=== PATIENT | female | born 2000 | race Two or more races ===

== ENCOUNTER 2020-05-07 07:57 | Emergency (ER) | payer OTHER, SELFPAY ==
[2020-05-07 08:46] VITALS: BP 139/93; PULSE 89; RESP 16; O2SAT 98; BMI 37.9
--- NOTE | 2020-05-07 08:53 | ED_ITS ---
HPI - Chest Pain General Chief Complaint: Chest Pain Stated Complaint: chest pain Time Seen by Provider: 05/07/20 08:34 Source: patient Mode of arrival: ambulatory Limitations: no limitations History of Present Illness MD complaint: chest pain Onset (ago): day(s) (3) Timing of current episode: episodic Prior episodes: No Onset: during rest and during exertion Pain location: left chest Pain radiation: none Severity: moderate Quality: sharp Relieving factors: nothing Exacerbating factors: inspiration Context: recent illness (dx with COVID 1 week ago after loss of taste) Treatment prior to arrival: none Related Data Allergies Allergy/AdvReac Type Severity Reaction Status Date / Time No Known Allergies Allergy Verified 05/07/20 08:51 Review of Systems Review of Systems: Constitutional : No Weight loss, No Fever, No Chills ENT/Mouth : No sore throat, No Rhinorrhea Eyes: No Eye Pain, No Swelling Cardiovascular : pos Chest Pain, no SOB, no Dyspnea on Exertion, No Orthopnea, No Edema, No Palpitations Respiratory : No Cough, No Sputum Gastrointestinal : pos Nausea, No Vomiting, No Diarrhea, No abdominal Pain, No Hematochezia, No Melena Genitourinary : No Dysuria, No Urinary Frequency Musculoskeletal : No joint pain, No Myalgias, No Joint Swelling Skin : No Skin Lesions, No rash Neuro : No Weakness, No Numbness, No Dizziness, No Headache Psych : No Anxiety/Panic, No Depression Heme/Lymph: No Bruising, No Lymphadenopathy Endocrine : No Polyuria, No Polydipsia All other systems reviewed and are negative PMFSH Past Medical History Attestation statement: The following information was validated with the patient. Medical History COVID-19 Social History Social History (Updated 05/07/20 @ 09:04 by Elisabeth Leung DO) Alcohol intake: never Smoking Status: Never smoker Use of substances other than those prescribed or required for medical reasons: No Advance Directives: No Advance Directives Information Provided: No Physical Exam Vital Signs: Vital Signs: Last Vital Signs Pulse 89 05/07/20 08:46 Resp 16 05/07/20 08:46 BP 139/93 H 05/07/20 08:46 Pulse Ox 98 05/07/20 08:46 Body Mass Index 37.9 Appearance: Alert. Oriented X3. No acute distress. Eyes: Pupils equal, round and reactive to light. ENT: Pharynx normal. Neck: Normal inspection. Neck supple. CVS: Normal heart rate and rhythm. Pulses normal. Respiratory: No respiratory distress. Breath sounds normal. Abdomen: Soft and nontender. Skin: Skin warm and dry. Normal skin color. Normal skin turgor. Extremities: No lower extremity edema. No calf ttp Neuro: Oriented X 3. No motor deficit. No sensory deficit. Course Course Course Narrative: negative CXR, neg ddimer, neg trop - stable for DC MDM - Chest Pain MDM Narrative Medical decision making narrative: 19 yo female not on OCPs dx with COVID 1 week ago here with L sided pleuritic chest pain no tachycardia/hypoxia but given COVID dx will need labs, EKG, CXR, troponin and ddimer for possible PE, dispo per results and findings. Lab Data Result diagrams: 05/07/20 09:09 05/07/20 09:09 Labs: Lab Results 05/07/20 05/07/20 05/07/20 Range/Units 09:09 09:09 09:09 WBC 12.7 H (4.8-10.8) X10*3/uL RBC 4.60 (4.20-5.50) X10*6/uL Hgb 13.6 (12.0-16.0) g/dl Hct 42.1 (37-47) % MCV 91.5 (80-98) fL MCH 29.6 (27.0-33.0) pg MCHC 32.3 (31.0-35.0) g/dl RDW 13.1 (11.0-16.0) % Plt Count 278 (160-400) X10*3/uL MPV 9.7 (9.4-12.3) fL Immature Gran % (Auto) 0.5 H (0.0-0.4) % Neut % (Auto) 81.1 H (45-73) % Lymph % (Auto) 13.4 L (20-40) % [place] % (Auto) 4.7 (2-11) % Eos % (Auto) 0.1 (0-4) % Baso % (Auto) 0.2 (0-2) % Lymph # (Auto) 1.7 (1.2-4.9) X10*3/uL [place] # (Auto) 0.6 (0.1-1.2) X10*3/uL Eos # (Auto) 0.0 (0.0-0.4) X10*3/uL Baso # (Auto) 0.0 (0.0-0.2) X10*3/uL Abs Immat Gran (auto) 0.06 H (0.00-0.03) X10*3/uL Absolute Neuts (auto) 10.3 H (2.0-8.3) X10*3/uL Absolute Nucleated RBC 0.000 (0.0-0.012) X10*3/uL Nucleated RBC % (auto) 0.0 (0.0-0.2) /100WBC D-Dimer < 200 NG/ML Sodium 140 (135-145) mmol/L Potassium 4.4 (3.3-5.1) mmol/l Chloride 104 (96-108) mmol/L Carbon Dioxide 26 (22-29) mmol/L Anion Gap 14 (12-20) BUN 10 (9-16) mg/dL Creatinine 0.75 (0.5-1.4) mg/dL Estim Creat Clear Calc 148.9 Estimated GFR > 60 Random Glucose 111 (60-115) mg/dL Calcium 9.6 (8.4-10.2) mg/dL Magnesium 2.2 (1.6-2.6) mg/dL Total Bilirubin 0.4 (0.0-1.0) mg/dL Direct Bilirubin 0.2 (0.0-0.5) mg/dL AST 20 (5-31) U/L ALT 25 (0-31) U/L Alkaline Phosphatase 111 (39-117) U/L Troponin I High Sens (<3.5-17.0) ng/L Total Protein 8.3 H (6.5-8.0) g/dL Albumin 4.9 (3.5-5.0) g/dL Urine Test (NEGATIVE) 05/07/20 05/07/20 Range/Units 09:09 10:02 WBC (4.8-10.8) X10*3/uL RBC (4.20-5.50) X10*6/uL Hgb (12.0-16.0) g/dl Hct (37-47) % MCV (80-98) fL MCH (27.0-33.0) pg MCHC (31.0-35.0) g/dl RDW (11.0-16.0) % Plt Count (160-400) X10*3/uL MPV (9.4-12.3) fL Immature Gran % (Auto) (0.0-0.4) % Neut % (Auto) (45-73) % Lymph % (Auto) (20-40) % [place] % (Auto) (2-11) % Eos % (Auto) (0-4) % Baso % (Auto) (0-2) % Lymph # (Auto) (1.2-4.9) X10*3/uL [place] # (Auto) (0.1-1.2) X10*3/uL Eos # (Auto) (0.0-0.4) X10*3/uL Baso # (Auto) (0.0-0.2) X10*3/uL Abs Immat Gran (auto) (0.00-0.03) X10*3/uL Absolute Neuts (auto) (2.0-8.3) X10*3/uL Absolute Nucleated RBC (0.0-0.012) X10*3/uL Nucleated RBC % (auto) (0.0-0.2) /100WBC D-Dimer NG/ML Sodium (135-145) mmol/L Potassium (3.3-5.1) mmol/l Chloride (96-108) mmol/L Carbon Dioxide (22-29) mmol/L Anion Gap (12-20) BUN (9-16) mg/dL Creatinine (0.5-1.4) mg/dL Estim Creat Clear Calc Estimated GFR Random Glucose (60-115) mg/dL Calcium (8.4-10.2) mg/dL Magnesium (1.6-2.6) mg/dL Total Bilirubin (0.0-1.0) mg/dL Direct Bilirubin (0.0-0.5) mg/dL AST (5-31) U/L ALT (0-31) U/L Alkaline Phosphatase (39-117) U/L Troponin I High Sens < 3.5 (<3.5-17.0) ng/L Total Protein (6.5-8.0) g/dL Albumin (3.5-5.0) g/dL Urine Test NEGATIVE (NEGATIVE) ECG Data ECG #1: Attestation: I personally reviewed and interpreted this ECG as follows: ECG interpretation date: 05/07/20 ECG interpretation time: 10:47 Interpretation: Rate: 75 Rhythm: NSR [place]: normal Normal P waves. Normal PINA. Normal QRS complex. ST T wave : normal no KENTRELL qTC: normal prior studies: no acute ischemia The study has been interpreted contemporaneously by me. . Discharge Plan Discharge Clinical Impression: Atypical chest pain Patient Disposition: Home, Self-Care Instructions: Chest Pain (ED) Additional Instructions: return to ED for any worsening symptoms or concerns Referrals: Desiree Xavier PA [Primary Care Provider] - 3 days (if not better) Stand Alone Forms: Work/School Release
--- NOTE | 2020-05-07 08:53 | XR_ITS ---
EXAMINATION: XR CHEST CLINICAL INFORMATION: Chest pain. COMPARISON: None TECHNIQUE: Frontal view of the chest was obtained. FINDINGS: No significant abnormality is noted involving the heart, lungs, mediastinum, bony thorax or soft tissues. XR/XR chest 1V IMPRESSION: Unremarkable chest examination.
--- NOTE | 2020-05-07 08:53 | ECG_ITS ---
Test Reason : CP Blood Pressure : / mmHG Vent. Rate : 075 BPM Atrial Rate : 075 BPM P-R Int : 108 ms QRS Dur : 088 ms QT Int : 390 ms P-R-T Axes : 029 039 012 degrees QTc Int : 435 ms Sinus rhythm with short ID Otherwise normal EKG No previous ECGs available Referred By: Elisabeth Leung Electronically Signed By:MATT VIVEROS
[2020-05-07 09:14] LABS: MANUAL DIFF FLAG NO
[2020-05-07 09:20] LABS: Basophils Percent Auto 0.2 % (0-2); Eosinophils Percent Auto 0.1 % (0-4); Hematocrit 42.1 % (37-47); Hemoglobin 13.6 g/dl (12.0-16.0); Imm Gran Abs Auto 0.06 X10*3/uL (0.00-0.03); Imm Gran Pct Auto 0.5 % (0.0-0.4); Lymphocytes Absolute Auto 1.7 X10*3/uL (1.2-4.9); Lymphocytes Percent Auto 13.4 % (20-40); Mean Corpuscular HGB Conc 32.3 g/dl (31.0-35.0); Mean Corpuscular Hemoglobin 29.6 pg (27.0-33.0); Mean Corpuscular Volume 91.5 fL (80-98); Mean Platelet Volume 9.7 fL (9.4-12.3); Monocytes Absolute Auto 0.6 X10*3/uL (0.1-1.2); Monocytes Percent Auto 4.7 % (2-11); Neutrophils Absolute Auto 10.3 X10*3/uL (2.0-8.3); Neutrophils Percent Auto 81.1 % (45-73); Platelet Count 278 X10*3/uL (160-400); Red Cell Distribution Width 13.1 % (11.0-16.0); White Blood Count 12.7 X10*3/uL (4.8-10.8)
[2020-05-07 09:31] LABS: D Dimer < 200 NG/ML
[2020-05-07 09:36] LABS: Alanine Aminotransferase 25 U/L (0-31); Albumin Level 4.9 g/dL (3.5-5.0); Alkaline Phosphatase 111 U/L (39-117); Anion Gap 14 (12-20); Aspartate Amino Transferase 20 U/L (5-31); Bilirubin Direct 0.2 mg/dL (0.0-0.5); Bilirubin Total 0.4 mg/dL (0.0-1.0); Blood Urea Nitrogen 10 mg/dL (9-16); Calcium 9.6 mg/dL (8.4-10.2); Carbon Dioxide 26 mmol/L (22-29); Chloride 104 mmol/L (96-108); Creatinine Clr Calc Pharmacy 148.9; Estimated Glomerular Filt Rate > 60; Glucose Random 111 mg/dL (60-115); Magnesium 2.2 mg/dL (1.6-2.6); Potassium 4.4 mmol/l (3.3-5.1); Sodium 140 mmol/L (135-145); Total Protein 8.3 g/dL (6.5-8.0)
[2020-05-07 09:40] LABS: Troponin-I High Sensitivity < 3.5 ng/L (<3.5-17.0)
--- NOTE | 2020-05-07 10:04 | PC.NURSE ---
iv established, blood labs obtained and sent, ekg completed. pt ambulated to and from bathroom w steady gait for ua spec. awaiting cxr.
[2020-05-07 10:54] LABS: UPreg QC Valid YES; Urine Pregnancy NEGATIVE (NEGATIVE)
== END 2020-05-07 11:29 | disposition home or self-care (01) ==
PROVIDERS: Emergency Provider Emergency Medicine
DX: R07.89 Other chest pain (principal); Z86.16 Personal history of COVID-19
CPT/HCPCS: 36415; 71045; 80048; 80076; 81025; 83735; 84484; 85025; 85379; 93005; 99283; 99284

== ENCOUNTER 2020-05-13 19:10 | Emergency (ER) | payer OTHER, SELFPAY ==
--- NOTE | 2020-05-13 | ECG_ITS ---
Test Reason : CP Blood Pressure : / mmHG Vent. Rate : 078 BPM Atrial Rate : 078 BPM P-R Int : 106 ms QRS Dur : 088 ms QT Int : 368 ms P-R-T Axes : 041 041 009 degrees QTc Int : 419 ms Sinus rhythm with short ID Nonspecific T wave abnormality Abnormal ECG When compared with ECG of 07-MAY-2020 09:29, No significant change was found Referred By: Generic ED Physician Electronically Signed By:Angel Barragan
[2020-05-13 19:22] VITALS: BP 141/91; PULSE 83; RESP 16; TEMP 36.8; O2SAT 98; BMI 36.8
--- NOTE | 2020-05-13 20:45 | XR_ITS ---
EXAMINATION: XR CHEST CLINICAL INFORMATION: Chest pain. COMPARISON: Chest 05/07/2020 TECHNIQUE: Frontal view of the chest was obtained. FINDINGS: No significant abnormality is noted involving the heart, lungs, mediastinum, bony thorax or soft tissues. XR/XR chest 1V IMPRESSION: Unremarkable chest examination.
--- NOTE | 2020-05-13 21:07 | ED.CHESTPAIN ---
HPI - Chest Pain General Chief Complaint: Chest Pain Stated Complaint: chest pain Time Seen by Provider: 05/13/20 21:07 Source: patient and old records reviewed Mode of arrival: ambulatory Limitations: no limitations History of Present Illness HPI narrative: 19 yo female dx with COVID 05/01/20 - seen here on 05/07 for chest pain with negative EKG, troponin ddimer, she is not on OCPs, still have CP that is more CWP today but noted her L arm felt funny and the pain went down it complaint: chest heaviness Pertinent past history: other (COVID) Onset (ago): day(s) (7) Timing of current episode: constant Onset: during rest Pain location: substernal and left chest Pain radiation: left arm Severity: similar to previous episodes Quality: aching and heaviness Relieving factors: nothing Exacerbating factors: palpation and movement Context: recent illness (COVID) Treatment prior to arrival: none Related Data Previous Rx's Medication Instructions Recorded cyclobenzaprine 10 mg PO TID PRN #14 tab 05/13/20 prednisone 40 mg PO DAILY 5 Days #10 tab 05/13/20 Allergies Allergy/AdvReac Type Severity Reaction Status Date / Time No Known Allergies Allergy Verified 05/07/20 08:51 Review of Systems Review of Systems: Constitutional : No Weight loss, No Fever, No Chills ENT/Mouth : No sore throat, No Rhinorrhea Eyes: No Eye Pain, No Swelling Cardiovascular : pos Chest Pain, no SOB, no Dyspnea on Exertion, No Orthopnea, No Edema, No Palpitations Respiratory : No Cough, No Sputum Gastrointestinal : no Nausea, No Vomiting, No Diarrhea, No abdominal Pain, No Hematochezia, No Melena Genitourinary : No Dysuria, No Urinary Frequency Musculoskeletal : No joint pain, No Myalgias, No Joint Swelling Skin : No Skin Lesions, No rash Neuro : No Weakness, No Numbness, No Dizziness, No Headache Psych : No Anxiety/Panic, No Depression Heme/Lymph: No Bruising, No Lymphadenopathy Endocrine : No Polyuria, No Polydipsia All other systems reviewed and are negative [facility] Past Medical History Attestation statement: The following information was validated with the patient. Medical History COVID-19 Social History Social History Alcohol intake: never Smoking Status: Current some day smoker Use of substances other than those prescribed or required for medical reasons: No Advance Directives: No Advance Directives Information Provided: No Physical Exam Vital Signs: Vital Signs: Last Vital Signs Temp 98.2 F 05/13/20 19:22 Pulse 83 05/13/20 19:22 Resp 18 05/13/20 21:25 BP 141/91 H 05/13/20 19:22 Pulse Ox 98 05/13/20 19:22 Body Mass Index 36.8 Appearance: Alert. Oriented X3. No acute distress. Eyes: Pupils equal, round and reactive to light. ENT: Pharynx normal. Neck: Normal inspection. Neck supple. CVS: Normal heart rate and rhythm. Pulses normal. Respiratory: No respiratory distress. Breath sounds normal. Chest: ttp along bilateral costochondral junction Abdomen: Soft and non-tender. Skin: Skin warm and dry. Normal skin color. Normal skin turgor. Extremities: No lower extremity edema. No calf ttp Neuro: Oriented X 3. No motor deficit. No sensory deficit. Course Course Course Narrative: negative workup, stable for DC MDM - Chest Pain MDM Narrative Medical decision making narrative: 19 yo female recent COVID not on OCPs here with CWP for 1 week, given COVID will repeat ddimer, EKG, troponin, CXR though seems likely MSK in nature - IV toradol for pain ordered. Lab Data Result diagrams: 05/13/20 21:10 05/13/20 21:10 Labs: Lab Results 05/13/20 05/13/20 05/13/20 Range/Units 21:10 21:10 21:10 WBC 12.0 H (4.8-10.8) X10*3/uL RBC 4.55 (4.20-5.50) X10*6/uL Hgb 13.6 (12.0-16.0) g/dl Hct 41.3 (37-47) % MCV 90.8 (80-98) fL MCH 29.9 (27.0-33.0) pg MCHC 32.9 (31.0-35.0) g/dl RDW 13.1 (11.0-16.0) % Plt Count 329 (160-400) X10*3/uL MPV 10.5 (9.4-12.3) fL Immature Gran % (Auto) 0.2 (0.0-0.4) % Neut % (Auto) 65.2 (45-73) % Lymph % (Auto) 26.1 (20-40) % [place] % (Auto) 8.1 (2-11) % Eos % (Auto) 0.2 (0-4) % Baso % (Auto) 0.2 (0-2) % Lymph # (Auto) 3.1 (1.2-4.9) X10*3/uL [place] # (Auto) 1.0 (0.1-1.2) X10*3/uL Eos # (Auto) 0.0 (0.0-0.4) X10*3/uL Baso # (Auto) 0.0 (0.0-0.2) X10*3/uL Abs Immat Gran (auto) 0.03 (0.00-0.03) X10*3/uL Absolute Neuts (auto) 7.8 (2.0-8.3) X10*3/uL Absolute Nucleated RBC 0.000 (0.0-0.012) X10*3/uL Nucleated RBC % (auto) 0.0 (0.0-0.2) /100WBC D-Dimer NG/ML Hold Blue Top Sodium 140 (135-145) mmol/L Potassium 4.3 (3.3-5.1) mmol/l Chloride 105 (96-108) mmol/L Carbon Dioxide 19 L (22-29) mmol/L Anion Gap 20 (12-20) BUN 6 L (9-16) mg/dL Creatinine 0.73 (0.5-1.4) mg/dL Estim Creat Clear Calc 150.5 Estimated GFR > 60 Random Glucose 81 (60-115) mg/dL Calcium 9.2 (8.4-10.2) mg/dL Troponin I High Sens < 3.5 (<3.5-17.0) ng/L 05/13/20 Range/Units 21:30 WBC (4.8-10.8) X10*3/uL RBC (4.20-5.50) X10*6/uL Hgb (12.0-16.0) g/dl Hct (37-47) % MCV (80-98) fL MCH (27.0-33.0) pg MCHC (31.0-35.0) g/dl RDW (11.0-16.0) % Plt Count (160-400) X10*3/uL MPV (9.4-12.3) fL Immature Gran % (Auto) (0.0-0.4) % Neut % (Auto) (45-73) % Lymph % (Auto) (20-40) % [place] % (Auto) (2-11) % Eos % (Auto) (0-4) % Baso % (Auto) (0-2) % Lymph # (Auto) (1.2-4.9) X10*3/uL [place] # (Auto) (0.1-1.2) X10*3/uL Eos # (Auto) (0.0-0.4) X10*3/uL Baso # (Auto) (0.0-0.2) X10*3/uL Abs Immat Gran (auto) (0.00-0.03) X10*3/uL Absolute Neuts (auto) (2.0-8.3) X10*3/uL Absolute Nucleated RBC (0.0-0.012) X10*3/uL Nucleated RBC % (auto) (0.0-0.2) /100WBC D-Dimer < 200 NG/ML Hold Blue Top SEE NOTE Sodium (135-145) mmol/L Potassium (3.3-5.1) mmol/l Chloride (96-108) mmol/L Carbon Dioxide (22-29) mmol/L Anion Gap (12-20) BUN (9-16) mg/dL Creatinine (0.5-1.4) mg/dL Estim Creat Clear Calc Estimated GFR Random Glucose (60-115) mg/dL Calcium (8.4-10.2) mg/dL Troponin I High Sens (<3.5-17.0) ng/L ECG Data ECG #1: Attestation: I personally reviewed and interpreted this ECG as follows: ECG interpretation date: 05/13/20 ECG interpretation time: 21:10 Interpretation: Rate: 78 Rhythm: NSR [place]: normal Normal P waves. Normal PINA. Normal QRS complex. ST T wave : inverted V1, nonspecific anterior leads, no KENTRELL qTC: normal prior studies: no sig change, no acute ischemia The study has been interpreted contemporaneously by me. . Discharge Plan Discharge Clinical Impression: Atypical chest pain, Acute costochondritis Patient Disposition: Home, Self-Care Instructions: Costochondritis (ED) Additional Instructions: return to ED for any worsening symptoms or concerns Prescriptions: New cyclobenzaprine 10 mg tablet 10 mg PO TID PRN (Reason: muscle spasm) Qty: 14 RF: 0 prednisone 20 mg tablet 40 mg PO DAILY 5 Days Qty: 10 RF: 0 Referrals: Physician,Unknown [Primary Care Provider] - 2 days (PCP if not better) Stand Alone Forms: Work/School Release
--- NOTE | 2020-05-13 21:12 | PC.NURSE ---
pt please on monitor, labs drawn and sent. Iv placed.
[2020-05-13] MEDS: Ketorolac Tromethamine 30 MG/ML VIAL IVPUSH (21:19)
[2020-05-13 21:25] VITALS: RESP 18
[2020-05-13 21:28] LABS: Basophils Percent Auto 0.2 % (0-2); Eosinophils Percent Auto 0.2 % (0-4); Hematocrit 41.3 % (37-47); Hemoglobin 13.6 g/dl (12.0-16.0); Imm Gran Abs Auto 0.03 X10*3/uL (0.00-0.03); Imm Gran Pct Auto 0.2 % (0.0-0.4); Lymphocytes Absolute Auto 3.1 X10*3/uL (1.2-4.9); Lymphocytes Percent Auto 26.1 % (20-40); MANUAL DIFF FLAG NO; Mean Corpuscular HGB Conc 32.9 g/dl (31.0-35.0); Mean Corpuscular Hemoglobin 29.9 pg (27.0-33.0); Mean Corpuscular Volume 90.8 fL (80-98); Mean Platelet Volume 10.5 fL (9.4-12.3); Monocytes Percent Auto 8.1 % (2-11); Neutrophils Absolute Auto 7.8 X10*3/uL (2.0-8.3); Neutrophils Percent Auto 65.2 % (45-73); Platelet Count 329 X10*3/uL (160-400); Red Blood Count 4.55 X10*6/uL (4.20-5.50); Red Cell Distribution Width 13.1 % (11.0-16.0)
[2020-05-13 22:01] LABS: Anion Gap 20 (12-20); Blood Urea Nitrogen 6 mg/dL (9-16); Calcium 9.2 mg/dL (8.4-10.2); Carbon Dioxide 19 mmol/L (22-29); Chloride 105 mmol/L (96-108); Creatinine Clr Calc Pharmacy 150.5; Estimated Glomerular Filt Rate > 60; Glucose Random 81 mg/dL (60-115); Potassium 4.3 mmol/l (3.3-5.1); Sodium 140 mmol/L (135-145)
[2020-05-13 22:03] LABS: Troponin-I High Sensitivity < 3.5 ng/L (<3.5-17.0)
[2020-05-13 22:28] LABS: D Dimer < 200 NG/ML
[2020-05-13] MEDS: Cyclobenzaprine HCl 10 MG TABLET PO (22:48)
== END 2020-05-13 22:52 | disposition home or self-care (01) ==
PROVIDERS: Emergency Provider Emergency Medicine
DX: R07.89 Other chest pain (principal); M94.0 Chondrocostal junction syndrome [Tietze]; M79.602 Pain in left arm; F17.200 Nicotine dependence, unspecified, uncomplicated; Z71.6 Tobacco abuse counseling; Z86.16 Personal history of COVID-19; Z79.899 Other long term (current) drug therapy
CPT/HCPCS: 36415; 71045; 80048; 84484; 85025; 85379; 93005; 96374; 99284; J1885

== ENCOUNTER 2020-05-30 06:59 | Emergency (ER) | payer OTHER, SELFPAY ==
--- NOTE | ~2020-05-30 | XR_ITS ---
EXAMINATION: XR CHEST CLINICAL INFORMATION: Chest pain. COMPARISON: None TECHNIQUE: 2 views of the chest were obtained. FINDINGS: No significant abnormality is noted involving the heart, lungs, mediastinum, bony thorax or soft tissues. XR/XR chest 2V IMPRESSION: Unremarkable chest examination.
[2020-05-30 07:11] VITALS: BP 149/96; PULSE 95; RESP 18; TEMP 37.1; O2SAT 100; BMI 35.6
[2020-05-30] MEDS: Ketorolac Tromethamine 30 MG/ML VIAL IVPUSH (07:45)
[2020-05-30] MEDS: ondansetron HCL 4 MG/2 ML VIAL IVPUSH (07:46)
[2020-05-30] MEDS: 0.9 % Sodium Chloride 1,000 ML 999 ML IV (07:46)
[2020-05-30 07:50] LABS: MANUAL DIFF FLAG NO
[2020-05-30 07:51] LABS: Basophils Percent Auto 0.2 % (0-2); Eosinophils Absolute Auto 0.1 X10*3/uL (0.0-0.4); Eosinophils Percent Auto 0.6 % (0-4); Hematocrit 38.4 % (37-47); Hemoglobin 12.7 g/dl (12.0-16.0); Imm Gran Abs Auto 0.04 X10*3/uL (0.00-0.03); Imm Gran Pct Auto 0.4 % (0.0-0.4); Lymphocytes Absolute Auto 3.1 X10*3/uL (1.2-4.9); Mean Corpuscular HGB Conc 33.1 g/dl (31.0-35.0); Mean Corpuscular Hemoglobin 30.1 pg (27.0-33.0); Mean Platelet Volume 9.7 fL (9.4-12.3); Monocytes Absolute Auto 0.8 X10*3/uL (0.1-1.2); Monocytes Percent Auto 7.2 % (2-11); Neutrophils Absolute Auto 6.6 X10*3/uL (2.0-8.3); Neutrophils Percent Auto 62.6 % (45-73); Platelet Count 263 X10*3/uL (160-400); Red Blood Count 4.22 X10*6/uL (4.20-5.50); Red Cell Distribution Width 13.2 % (11.0-16.0); White Blood Count 10.5 X10*3/uL (4.8-10.8)
[2020-05-30 07:56] LABS: Glucose Urine UA NEG (NEG); Leukocyte Esterase Urine NEG (NEG); Nitrite Urine NEG (NEG); Specific Gravity - Urine >= 1.030 (1.005-1.025); Urine Blood 1+ (NEG); Urine Ketones >=80 MG/DL (NEG); Urine Protein NEG (NEG-TRACE)
[2020-05-30 07:59] LABS: Appearance Urine CLEAR; Color Urine YELLOW
[2020-05-30 08:00] LABS: UPreg QC Valid YES; Urine Pregnancy NEGATIVE (NEGATIVE)
[2020-05-30 08:16] LABS: Alanine Aminotransferase 16 U/L (0-31); Albumin Level 4.6 g/dL (3.5-5.0); Alkaline Phosphatase 110 U/L (39-117); Anion Gap 14 (12-20); Aspartate Amino Transferase 15 U/L (5-31); Bilirubin Total 0.4 mg/dL (0.0-1.0); Blood Urea Nitrogen 13 mg/dL (9-16); Calcium 9.4 mg/dL (8.4-10.2); Carbon Dioxide 26 mmol/L (22-29); Chloride 103 mmol/L (96-108); Estimated Glomerular Filt Rate > 60; Glucose Random 95 mg/dL (60-115); Potassium 4.1 mmol/L (3.3-5.1); Sodium 139 mmol/L (135-145); Total Protein 7.7 g/dL (6.5-8.0)
[2020-05-30 08:21] LABS: Mucus Urine 3+ /LPF; Squamous Epithelial Cell Urine 1+ /LPF
[2020-05-30 08:32] VITALS: RESP 18
--- NOTE | 2020-05-30 09:07 | ECG_ITS ---
Test Reason : CHEST TIGHTNESS Blood Pressure : / mmHG Vent. Rate : 079 BPM Atrial Rate : 079 BPM P-R Int : 108 ms QRS Dur : 094 ms QT Int : 406 ms P-R-T Axes : 040 046 014 degrees QTc Int : 465 ms Sinus rhythm with short [place] Nonspecific T wave abnormality Prolonged QT Abnormal ECG When compared with ECG of 13-MAY-2020 19:16, No significant change was found Referred By: Michelet Segura Electronically Signed By:ALAN GONSALVES MD
--- NOTE | 2020-05-30 09:32 | ED.GENADULT ---
HPI - General Adult General Chief complaint: Abdominal Pain Stated complaint: RIGHT SIDED PAIN Time Seen by Provider: 05/30/20 07:06 Source: patient Mode of arrival: ambulatory Limitations: no limitations History of Present Illness HPI narrative: 19-year-old female who presents emergency department for evaluation chest pain and abdominal pain. The patient states she has been having chest pain for approximately 1 month. She points to her anterior chest when asked to localize the pain. She describes the pain is a sharp pain which is worse with breathing and worse with movement. She states that the right side of her chest is worse than the left. The patient was seen in the emergency department on May 13, 2020 and diagnosed with costochondritis. She states that the medications that she was started on did help but then her pain has not returned and she is not taking any other medications for the pain. Patient also states that over the past 2 weeks she has had an acid he taste in the back of her mouth and some pain in her abdomen. She points to her mid epigastric area when asked to localize the pain. She describes it as a burning discomfort which is [id number] in intensity. She denied any nausea vomiting or change in bowel movements. She denied fever, chills, cough, shortness of breath or dyspnea on exertion. Related Data Previous Rx's Medication Instructions Recorded cyclobenzaprine 10 mg PO TID PRN #14 tab 05/13/20 prednisone 40 mg PO DAILY 5 Days #10 tab 05/13/20 omeprazole 20 mg PO DAILY 30 Days #30 cap 05/30/20 Allergies Allergy/AdvReac Type Severity Reaction Status Date / Time No Known Allergies Allergy Verified 05/07/20 08:51 Review of Systems Review of Systems: Yes all other systems are reviewed and are negative Neurologic: Reports Abnormal speech present [facility] Past Medical History [facility] Narrative: The patient has no significant past medical history except for being diagnosed with costochondritis in April of 2020. She denies tobacco, alcohol and drug use. Medical History COVID-19 Social History Social History Alcohol intake: never Smoking Status: Never smoker Use of substances other than those prescribed or required for medical reasons: No Advance Directives: No Advance Directives Information Provided: No Physical Exam Vital Signs: Vital Signs: Last Vital Signs Temp 98.7 F 05/30/20 07:11 Pulse 95 05/30/20 07:11 Resp 18 05/30/20 08:32 BP 149/96 H 05/30/20 07:11 Pulse Ox 100 05/30/20 07:11 Body Mass Index 35.6 Const: General: cooperative and healthy appearing Orientation/consciousness: oriented to person and oriented to place Limitations: no limitations HENMT: Head: Yes normal to inspection, Yes normocephalic and Yes atraumatic Ears: external ears normal General nose exam: Normal external nose present Face and sinus: Yes normal facial exam Mouth: Normal oral and palatal mucosa present Throat: Yes posterior oropharynx normal Eyes: Periorbital: periorbital findings normal Eyelids: Yes eyelids normal Conjunctivae: conjunctivae normal Sclerae: sclerae normal Corneas: corneas normal Pupils: Equal, round and reactive pupils present Direct Ophthalmoscopy: normal light reflex Neck: Neck: Yes full ROM, Yes no lymphadenopathy, Yes no meningeal signs, Yes trachea midline and Yes supple Chest: Chest palpation & inspection: normal inspection of the chest and tenderness (Anterior chest wall tenderness, moderate) Resp: Effort & Inspection: normal respiratory effort and able to speak in complete sentences Auscultation: clear to auscultation bilaterally Cardio: Rate: regular rate Rhythm: regular rhythm Heart sounds: S1 normal heart sound present, S2 normal heart sound present and no murmurs GI: Inspection: Yes normal to inspection Palpation (GI): Soft to palpation, Tenderness to palpation present (GI) (Mild midepigastric tenderness), no guarding, not rigid and No hepatosplenomegaly present : General: Yes no CVA tenderness Back/Spine/Pelvis: Back: no CVA tenderness Cervical Spine: normal cervical lordosis Thoracic/Lumbar Spine: thoracic and lumbar spine normal to inspection Skin: Lesions: no lesions Rashes: no rashes Wounds: no wounds Neuro: General: oriented to person, oriented to place and no meningeal signs Cranial nerves: Yes CN's II-XII intact bilaterally and Yes Equal, round and reactive pupils present Cognition (Neuro): normal cognition Speech: Abnormal speech present Motor exam (neuro): 5/5 motor strength present throughout Extrem: General: Yes normal to inspection and Yes full ROM Psych: Appearance: well kempt Mental Status: mental status grossly normal Speech and movement: Normal speech and movement present Affect: normal affect Attitude: cooperative Thought process: Normal thought process present Thought content: Normal thought content present Course Course Course Narrative: 19-year-old female who presents emergency department for evaluation of anterior chest wall pain and midepigastric pain. Physical examination did reveal slight elevation of blood pressure of 149/96 but otherwise normal vital signs with a pulse of 95, respiratory 18 and O2 saturation of 100% on room air. Physical examination did reveal anterior chest wall tenderness and midepigastric tenderness. Laboratory evaluation was unremarkable. Patient's presentation is consistent with costochondritis and mild gastritis. Was treated with Toradol 30 mg IV and Zofran 4 mg IV. She also received normal saline IV. She is feeling significantly better. The patient was advised to take Tylenol and ibuprofen for pain. She is also started on omeprazole 20 mg once a day for 1 month. She was given printed and verbal instructions and discharged home. Medical Decision Making Lab Data Result diagrams: 05/30/20 07:45 05/30/20 07:45 Labs: Lab Results 05/30/20 05/30/20 05/30/20 Range/Units 07:45 07:45 07:45 WBC 10.5 (4.8-10.8) X10*3/uL RBC 4.22 (4.20-5.50) X10*6/uL Hgb 12.7 (12.0-16.0) g/dl Hct 38.4 (37-47) % MCV 91.0 (80-98) fL MCH 30.1 (27.0-33.0) pg MCHC 33.1 (31.0-35.0) g/dl RDW 13.2 (11.0-16.0) % Plt Count 263 (160-400) X10*3/uL MPV 9.7 (9.4-12.3) fL Immature Gran % (Auto) 0.4 (0.0-0.4) % Neut % (Auto) 62.6 (45-73) % Lymph % (Auto) 29.0 (20-40) % [place] % (Auto) 7.2 (2-11) % Eos % (Auto) 0.6 (0-4) % Baso % (Auto) 0.2 (0-2) % Lymph # (Auto) 3.1 (1.2-4.9) X10*3/uL [place] # (Auto) 0.8 (0.1-1.2) X10*3/uL Eos # (Auto) 0.1 (0.0-0.4) X10*3/uL Baso # (Auto) 0.0 (0.0-0.2) X10*3/uL Abs Immat Gran (auto) 0.04 H (0.00-0.03) X10*3/uL Absolute Neuts (auto) 6.6 (2.0-8.3) X10*3/uL Absolute Nucleated RBC 0.000 (0.0-0.012) X10*3/uL Nucleated RBC % (auto) 0.0 (0.0-0.2) /100WBC Sodium 139 (135-145) mmol/L Potassium 4.1 (3.3-5.1) mmol/L Chloride 103 (96-108) mmol/L Carbon Dioxide 26 (22-29) mmol/L Anion Gap 14 (12-20) BUN 13 D (9-16) mg/dL Creatinine 0.74 (0.5-1.4) mg/dL Estim Creat Clear Calc 146.0 Estimated GFR > 60 Random Glucose 95 (60-115) mg/dL Calcium 9.4 (8.4-10.2) mg/dL Total Bilirubin 0.4 (0.0-1.0) mg/dL AST 15 (5-31) U/L ALT 16 (0-31) U/L Alkaline Phosphatase 110 (39-117) U/L Total Protein 7.7 (6.5-8.0) g/dL Albumin 4.6 (3.5-5.0) g/dL Urine Color YELLOW Urine Appearance CLEAR Urine pH 6.0 (5.0-8.0) Ur Specific [place] >= 1.030 H (1.005-1.025) Urine Protein NEG (NEG-TRACE) MG/DL Urine Glucose (UA) NEG (NEG) MG/DL Urine Ketones >=80 (NEG) MG/DL Urine Blood 1+ H (NEG) Urine Nitrite NEG (NEG) Ur Leukocyte Esterase NEG (NEG) Urine RBC 5-9 H (0) /HPF Urine WBC 1-4 (0-4) /HPF Ur Squamous Epith Cells 1+ /LPF Urine Bacteria NONE /LPF Urine Mucus 3+ /LPF Urine Test NEGATIVE (NEGATIVE) ECG Data Attestation: I personally reviewed and interpreted this ECG as follows: Interpretation: 0720: Normal sinus rhythm with a rate of 79, normal MS, QRS and QTC intervals, inverted T-wave in lead 3 and V1, no ST segment elevation, no ST segment depression, these are nonspecific changes, no old EKG for comparison, no evidence for myocardial injury or ischemia. Discharge Plan Discharge Clinical Impression: Acute costochondritis Gastritis Qualifiers: Gastritis type: unspecified gastritis Chronicity: acute Gastritis bleeding: without bleeding Qualified Code(s): K29.00 - Acute gastritis without bleeding Patient Disposition: Home, Self-Care Instructions: Gastritis (ED), Costochondritis (ED) Additional Instructions: Your laboratory evaluation was normal. Your EKG was normal. Your chest x-ray was normal. Your exam is consistent with inflammation of your chest joints (costochondritis). I also believe that you have mild inflammation of your stomach (gastritis). Take ibuprofen 200 mg pills, 3 pills every 6 hours as needed for pain. Take Tylenol (acetaminophen) 500 mg pills, 2 pills every 4 to 6 hours as needed for pain. Take omeprazole 20 mg pills, 1 pill once a day for 1 month. This medicine will shut off your acid production in the stomach and help your stomach inflammation (gastritis) heal. Follow-up with your doctor in 2 days. Please return to the emergency department if your symptoms get worse or if you develop any symptoms that are concerning to you. Prescriptions: New omeprazole 20 mg capsule,delayed release(DR/EC) 20 mg PO DAILY 30 Days Qty: 30 RF: 0 No Action cyclobenzaprine 10 mg tablet 10 mg PO TID PRN (Reason: muscle spasm) Qty: 14 RF: 0 prednisone 20 mg tablet 40 mg PO DAILY 5 Days Qty: 10 RF: 0
== END 2020-05-30 09:59 | disposition home or self-care (01) ==
PROVIDERS: Emergency Provider Emergency Medicine Emergency Medical Services
DX: M94.0 Chondrocostal junction syndrome [Tietze] (principal); K29.00 Acute gastritis without bleeding; Z86.16 Personal history of COVID-19
CPT/HCPCS: 36415; 71046; 80053; 81001; 81003; 81025; 85025; 93005; 99284; J1885; J2405

== ENCOUNTER 2020-07-31 09:02 | Outpatient (REF) | payer OTHER, SELFPAY ==
[2020-07-31 11:06] LABS: Glucose Urine UA NEG (NEG); Leukocyte Esterase Urine NEG (NEG); Nitrite Urine NEG (NEG); Specific Gravity - Urine >= 1.030 (1.005-1.025); Urine Blood TRACE (NEG); Urine Ketones NEG (NEG); Urine Protein NEG (NEG-TRACE)
[2020-07-31 11:07] LABS: Appearance Urine CLEAR; Color Urine YELLOW
[2020-07-31 11:40] LABS: Mucus Urine 1+ /LPF; RBC Urine 0-2 /HPF (0); Squamous Epithelial Cell Urine 1+ /LPF; WBC Urine 0-2 /HPF (0-4)
[2020-07-31 11:58] LABS: C Reactive Protein 0.28 mg/dL (< or = 0.50)
[2020-07-31 12:02] LABS: TSH reflex Free T4 0.42 uIU/mL (0.32-4.0)
[2020-08-01 13:11] LABS: Gliadin Deamidated IgA Ab 6 Units; Gliadin Deamidated IgG Ab 3 Units
[2020-08-01 14:22] LABS: Transglutaminase Ab IgG 1 U/mL; Transglutaminase IgA 1 U/mL
== END 2020-07-31 09:03 | disposition home or self-care (01) ==
LOC: HO.LAB 09:02
PROVIDERS: PCP Pediatrics; Visit Provider Nurse Practitioner
DX: R19.7 Diarrhea, unspecified (principal); R10.33 Periumbilical pain; K21.9 Gastro-esophageal reflux disease without esophagitis; R14.0 Abdominal distension (gaseous)
CPT/HCPCS: 36415; 81001; 81003; 83516; 84443; 86140

== ENCOUNTER 2020-08-15 10:05 | Outpatient (REF) | payer OTHER, SELFPAY ==
--- NOTE | ~2020-08-15 | US_ITS ---
EXAMINATION: US ABDOMEN COMPLETE CLINICAL INFORMATION: Periumbilical pain. COMPARISON: None TECHNIQUE: Real-time imaging of the abdominal viscera. FINDINGS: PANCREAS: Normal. ABDOMINAL AORTA: The proximal, mid, and distal segments are normal in caliber. INFERIOR VENA CAVA: Visualized portions are normal. LIVER: Normal. The liver is normal in size. The liver contour is normal. Parenchymal echogenicity is normal. No focal hepatic lesion. There is no intrahepatic biliary duct dilatation seen. GALLBLADDER: The gallbladder is physiologically distended. Multiple mobile gallstones are present. No evidence of gallbladder wall thickening or pericholecystic fluid. COMMON BILE DUCT: Normal in caliber measuring 0.2 cm in diameter. RIGHT KIDNEY: There is a stone in the lower pole that measures 8 x 6 x 7 mm. No hydronephrosis or focal parenchymal lesions. The kidney measures 11.0 cm in maximum dimension. LEFT KIDNEY: Normal. No hydronephrosis. No renal calculi or focal parenchymal lesions. The kidney measures 11.4 cm in maximum dimension. SPLEEN: Normal. The spleen measures 12.8 cm in maximum dimension. FREE FLUID: None. US/US abdomen complete IMPRESSION: Gallstones. Right renal stone.
== END 2020-08-15 10:06 | disposition home or self-care (01) ==
LOC: HO.US 10:05
PROVIDERS: Visit Provider Nurse Practitioner
DX: R10.33 Periumbilical pain (principal)
CPT/HCPCS: 76700

== ENCOUNTER → 2020-08-20 08:29 | Outpatient (BNVA) | payer OTHER, SELFPAY | PROVIDERS: PCP Pediatrics; Visit Provider Nurse Practitioner ==

== ENCOUNTER → 2020-10-15 14:34 | Outpatient (BNVA) | payer OTHER, SELFPAY | PROVIDERS: PCP Pediatrics; Visit Provider Nurse Practitioner ==

== ENCOUNTER → 2021-01-31 10:40 | Outpatient (REF) | payer OTHER, SELFPAY ==
--- NOTE | ~2021-01-31 | NM_ITS ---
EXAMINATION: BILIARY TRACT IMAGING STUDY WITH CCK CLINICAL INFORMATION: Calculus of gallbladder without cholecystitis.. COMPARISON: No previous biliary scan is available for comparison. Abdominal ultrasound dated 08/15/2020 is available for comparison.. TECHNIQUE: Serial gamma scintillation camera images were obtained over the abdomen for a total observation period of 90 minutes following the intravenous administration of 5 mCi Tc-99m Mebrofenin. FINDINGS: There is good concentration of activity in the liver by 5 minutes post injection. Biliary activity is visualized by 10 minutes. The gallbladder is well visualized by 15 minutes. Small bowel is well visualized by 20 minutes. At 60 minutes post radiopharmaceutical injection, a 30-minute infusion of 2.0 micrograms Sincalide was then begun and an additional 30 minutes of images were obtained. There is very minimal gallbladder emptying during the sincalide infusion. At the end of the study there is almost complete clearance of activity from the liver but abnormal persistence of activity in the gallbladder. Diffuse bowel activity is also visualized at this time. The calculated gallbladder ejection fraction is 2% (normal gallbladder ejection fraction is greater than 35%). NM/NM hepatobiliary w pharm IMPRESSION: 1. Visualization of the gallbladder is evidence of a patent cystic duct and strong evidence against the diagnosis of acute cholecystitis. The common bile duct is patent. Liver function appears normal. 2. Poor gallbladder emptying and a low gallbladder ejection fraction are evidence of impaired gallbladder contractility and most likely due to chronic cholecystitis.
== END ==
LOC: HO.NUCMED 10:40
PROVIDERS: PCP Pediatrics; Visit Provider Nurse Practitioner
DX: K80.20 Calculus of gallbladder without cholecystitis without obstruction (principal); R10.33 Periumbilical pain
CPT/HCPCS: 78227; A9537; J2805

== ENCOUNTER → 2021-02-26 15:56 | Outpatient (BNVA) | payer OTHER, SELFPAY | PROVIDERS: PCP Pediatrics; Visit Provider Nurse Practitioner ==

== ENCOUNTER → 2021-04-30 07:55 | Outpatient (BNVA) | payer OTHER, SELFPAY | PROVIDERS: PCP Internal Medicine; Visit Provider Nurse Practitioner ==

== ENCOUNTER → 2021-06-07 07:27 | Outpatient (BNVA) | payer OTHER, SELFPAY | PROVIDERS: PCP Internal Medicine; Referring Provider Internal Medicine; Visit Provider Nurse Practitioner ==

== ENCOUNTER 2021-10-04 12:55 | Outpatient (REF) | payer OTHER, SELFPAY ==
[2021-10-07 04:13] LABS: HBS Num1 5.39 mIU/mL (0-7.99); ~Hepatitis B Surface Antibody NONREACTIVE (Nonreactive)
[2021-10-07 18:57] LABS: TS Negative Control Passed; TS Panel A 0; TS Panel B 0; TS Positive Control Passed; TSpotTB Negative (Negative)
== END 2021-10-04 12:56 | disposition home or self-care (01) ==
LOC: HO.HMGCLDS 12:55
PROVIDERS: Visit Provider Internal Medicine
DX: Z01.84 Encounter for antibody response examination (principal); Z11.1 Encounter for screening for respiratory tuberculosis
CPT/HCPCS: 36415; 86481; 86706

== ENCOUNTER → 2022-10-15 15:47 | Outpatient (BNVA) | payer OTHER, MEDICAID, SELFPAY | PROVIDERS: PCP Internal Medicine; Visit Provider Nurse Practitioner ==

== ENCOUNTER → 2022-11-04 08:16 | Outpatient (REF) | payer OTHER, MEDICAID, SELFPAY ==
--- NOTE | ~2022-11-04 | NM_ITS ---
EXAMINATION: MN RADIONUCLIDE SOLID FOOD GASTRIC EMPTYING 4-HOUR STUDY CLINICAL INFORMATION: Nausea with vomiting, unspecified. COMPARISON: Hepatobiliary scintigraphic images done on 01/31/2021 and abdominal ultrasound done on 08/15/2020. TECHNIQUE: A standard meal consisting of 4 oz of Egg Beaters brand tagged with 970 microcuries Tc-99m Sulfur Colloid, 8 oz water and 2 slices of toast with jelly was administered orally to the patient. Images were obtained using a dual head gamma camera in the anterior and posterior projections over of the stomach immediately post ingestion and at hourly intervals up to 4 hours post ingestion. The anterior and posterior counts at each time interval were averaged using the geometric mean and expressed as percentage of the immediate post ingestion counts. FINDINGS: There is good visualization of activity in the stomach immediately post ingestion. As the study progresses, there is rapid clearance of activity from the stomach and visualization of progressively increasing small bowel activity. By the end of the 3 hours, there is almost no retention noted in the stomach. Retention in the stomach at each time interval was: 1 hour 23% (normal 37%-90%) 2 hours 15% (normal 30%-60%) 3 hours 3% 4 hours post ingestion calculation was not performed since only 3% retention was noted at the end of 3 hours. MN/MN gastric emptying study IMPRESSION: Abnormal study showing rapid gastric emptying. (For solid meal, rapid gastric emptying is less than 30% at 60 minutes. Delayed gastric emptying criteria is more than 60% remaining at 120 minutes or more than 10% at 240 minutes. The 4-hour value is the best discriminator of a normal or abnormal result). Gastric emptying study grading per JNMT Consensus Recommendations in 2008 (https://tech.snmjournals.org/content/36/1/44) Grade 1 (mild retention): 11-20% at 4h Grade 2 (moderate retention): 21-35% at 4h Grade 3 (severe retention): 36-50% at 4h Grade 4 (very severe retention): >50% retention at 4h
[2022-11-04 12:21] LABS: MANUAL DIFF FLAG NO
[2022-11-04 12:42] LABS: Basophils Percent Auto 0.3 % (0-2); Eosinophils Percent Auto 0.3 % (0-4); Hematocrit 38.7 % (37.0-47.0); Hemoglobin 12.4 g/dl (12.0-16.0); Imm Gran Abs Auto 0.06 X10*3/uL (0.00-0.03); Imm Gran Pct Auto 0.5 % (0.0-0.4); Lymphocytes Absolute Auto 2.3 X10*3/uL (1.2-4.9); Lymphocytes Percent Auto 18.8 % (20-40); Mean Corpuscular Hemoglobin 30.9 pg (27.0-33.0); Mean Corpuscular Volume 96.5 fL (80.0-98.0); Mean Platelet Volume 9.6 fL (9.4-12.3); Monocytes Absolute Auto 0.9 X10*3/uL (0.1-1.2); Monocytes Percent Auto 7.2 % (2-11); Neutrophils Absolute Auto 8.7 x10*3/uL (2.0-8.3); Neutrophils Percent Auto 72.9 % (45-73); Platelet Count 323 X10*3/uL (160-400); Red Blood Count 4.01 X10*6/uL (4.20-5.50); Red Cell Distribution Width 13.4 % (11.0-16.0)
[2022-11-04 13:13] LABS: Appearance Urine Turbid; Color Urine Yellow; Glucose Urine UA Negative (Negative); Leukocyte Esterase Urine Negative (Negative); Nitrite Urine Negative (Negative); Urine Blood Negative (Negative); Urine Ketones Negative (Negative); Urine Protein Negative (Neg-Trace)
[2022-11-04 13:36] LABS: Alanine Aminotransferase 18 U/L (0-31); Albumin Level 4.4 g/dL (3.5-5.0); Alkaline Phosphatase 78 U/L (39-117); Anion Gap 9 (12-20); Aspartate Amino Transferase 18 U/L (5-31); Bilirubin Total 0.3 mg/dL (0.0-1.0); Blood Urea Nitrogen 12 mg/dL (9-16); Calcium 9.6 mg/dL (8.4-10.2); Carbon Dioxide 26 mmol/L (22-29); Chloride 107 mmol/L (96-108); Estimated Glomerular Filt Rate > 60; Glucose Random 91 mg/dL (60-115); Potassium 4.3 mmol/L (3.3-5.1); Sodium 138 mmol/L (135-145); Total Protein 7.8 g/dL (6.5-8.0)
[2022-11-04 13:55] LABS: TSH reflex Free T4 0.55 uIU/mL (0.32-4.0)
== END ==
LOC: HO.NUCMED 08:16
PROVIDERS: PCP Internal Medicine; Visit Provider Nurse Practitioner
DX: R11.2 Nausea with vomiting, unspecified (principal); R63.5 Abnormal weight gain
CPT/HCPCS: 36415; 78264; 80053; 81003; 84443; 85025; A9541

== ENCOUNTER 2022-12-09 09:52 | Day surgery (SDC) | payer OTHER, MEDICAID, SELFPAY ==
[2022-12-05 15:10] VITALS: BMI 40.2
[2022-12-09 10:23] VITALS: BMI 40.3
--- NOTE | 2022-12-09 10:24 | HO.ANESPROP2 ---
HPI - Anesthesia Eval Consult details Narrative: egd PMFSH Active Problems Active Problems: All Active Problems (Updated 10/15/22 @ 16:50 by NANI Benites) GERD (gastroesophageal reflux disease) (Acute) Gallstones (Acute) Irritable bowel syndrome with both constipation and diarrhea (Acute) Nausea and vomiting (Acute) Biliary dyskinesia (Acute) Weight gain (Acute) Dysuria (Acute) Past Medical History Medical History (Updated 10/15/22 @ 16:50 by NANI Benites) COVID-19 Family History Family History Family/Other Colon cancer Maternal Grandmother Diabetes Maternal Aunt Diabetes Mental health disorder Paternal Aunt Mental health disorder Mother Mental health disorder Paternal Grandmother Gallstones Father Alcoholism Family history of problems with anesthesia: No Surgical History Surgical History (Updated 12/09/22 @ 10:17 by Layla Costa) No pertinent past surgical history Social History Social History Household Members: Family Housing: House Alcohol intake: never Patient Tobacco Use Status: Never used Tobacco e-Cigarette/Vaping Use: Never Used Advance Directives: No Advance Directives Information Provided: Yes service: No Current occupational status: employed Meds Allergies Allergy/AdvReac Type Severity Reaction Status Date / Time No Known Allergies Allergy Verified 12/09/22 10:16 Home Medications Medication Instructions Recorded Confirmed Last Taken Type etonogestrel 68 mg subdermal subdermal 10/15/22 Unknown History implant (Nexplanon) Exam Exam Date and Time: December 09, 2022 1024 Height,Weight and Vital Signs: Height 5 ft 6 in Weight 112.945 kg Airway Mallampati Class: II TM Dist: >3cm Neck ROM: Full Heart: rrr Lungs: cta Assessment and Plan Assessment Anesthesia Assessment: Anesthesia Plan Discussed and Chart Reviewed Final Anesthetic Review Family History of Problems with Anesthesia: No NPO: Yes ASA Class: II Final Preanesthetic Review: No Changes in Pt Med Stat, Meds/Allgs Chart Reviewed, Consent Obtained/Reviewed and Anes Risks/Benef Reviewed Patient Risk: Intermediate Anesthetic Plan Anesthetic Plan: MAC: and Agree w/ Assess. and Plan Disposition: Standard PACU
[2022-12-09 10:30] VITALS: BP 142/81; PULSE 82; RESP 16; TEMP 36.9; O2SAT 99
[2022-12-09 10:32] LABS: UPreg QC Valid YES; Urine Pregnancy NEGATIVE (NEGATIVE)
--- NOTE | 2022-12-09 10:41 | P.HPSUR_ITS ---
Pre-Procedural Eval Section A Date of Service: 12/09/22 Section B Chief Complaint: Nausea with vomiting, unspecified Details of Present Illness: colicky abdominal pain Relevant Family History (Specify if Yes): No Relevant Social History: None Present Medications: see Short Stay Collaborative assessment Medical History: Significant History (gallstones) History of Previous Operations: No relevant previous surgery Allergies: Allergies Allergy/AdvReac Type Severity Reaction Status Date / Time No Known Allergies Allergy Verified 12/09/22 10:16 Review of Systems Sugical H&P ROS: Negative: Constitution, Cardiovascular, Respiratory, Ne urological, Psychiatric, Hem-Onc, Allergic/Immunologic, Gastrointestinal, Genitourinary, Musculoskeletal, Integumentary, Endocrine and Eyes/Ears/Nose/Throat Exam Surgical H&P Exam: Normal: HEENT, Normal: Heart, Normal: Lungs, Normal: Extremities, Normal: Abdomen, Normal: Skin and Normal: Neurological Plan Diagnosis/Plan: Unchanged I have reviewed the history and physical and performed a pertinent physical examination on my patient. No changes have occurred unless specified. Time Spent With Patient Time: Total time managing care of this patient today ____ minutes.
--- NOTE | 2022-12-09 11:42 | W.PM.OPN ---
Operative Note Operative Note Date of Service: 12/09/22 Narrative: Procedure Description: EGD Indication: abdominal pain Anesthesia: MAC FLEXIBLE TRANSORAL UPPER GASTROINTESTINAL ENDOSCOPY UPPER ENDOSCOPY Consent: Indications for the procedure and potential complications of bleeding, perforation, reaction to medications and missed diagnosis were discussed with the patient and informed consent was obtained. Instrument: Olympus GIF H 190 J mid size upper endoscope Monitoring: Vital signs and clinical assessment, continuous EKG monitoring, Pulse oximetry, Carbon Dioxide monitoring and blood pressure monitoring were done throughout the procedure. Procedure: The patient was placed in the left lateral decubitis position and pre-procedure medications were administered and a bite block was placed. The endoscope was inserted into the mouth and advanced under direct vision to the third part of duodenum. A careful inspection was made as the upper endoscope was withdrawn including a retroflexed examination of the proximal stomach; Findings and interventions are described below. Findings: Larynx:normal Esophagus: GE junction at 38 cm, diaphragm hiatus at 38 cm, few tongues of salmon pink tissue suspicious for shot segment barretts along with some erythema consistent with esophagitis Stomach: Patchy gastric erythema. Biopsies were obtained. Grade 2 flap valve on retroflexed examination of the cardia. Duodenum: Normal bulb and descending duodenum, bx taken Intervention: Biopsies as noted above Impression/Findings: esophagitis possible barretts mild gastritis PLAN: await bx if ongoing sx of colicky pain then further surgical assessment for cholecystectomy if h pylori pos then treat trial of PPI if not taking can be considered
[2022-12-09 12:06] VITALS: BP 136/83; PULSE 74; RESP 16; TEMP 36.4; O2SAT 98
[2022-12-09 12:21] VITALS: BP 135/88; PULSE 74; RESP 16; TEMP 36.9; O2SAT 99
== END 2022-12-09 13:18 | disposition home or self-care (01) ==
PROVIDERS: Anesthesiology; PCP Internal Medicine; Visit Provider Internal Medicine Gastroenterology
PROC: 0DJ08ZZ Inspection of Upper Intestinal Tract, Via Natural or Artificial Opening Endoscopic (ICD-10-PCS; CPT 43235; principal; 2022-12-09 11:50)
DX: K29.50 Unspecified chronic gastritis without bleeding (principal); K20.80 Other esophagitis without bleeding; K44.9 Diaphragmatic hernia without obstruction or gangrene; K21.9 Gastro-esophageal reflux disease without esophagitis; K58.2 Mixed irritable bowel syndrome; Z86.16 Personal history of COVID-19; Z97.5 Presence of (intrauterine) contraceptive device
CPT/HCPCS: 43239; 81025; 88305; 88342; J2250; J3010

== ENCOUNTER → 2022-12-09 09:52 | Outpatient (BNV) | payer OTHER, MEDICAID, SELFPAY | PROVIDERS: PCP Internal Medicine; Visit Provider Internal Medicine Gastroenterology | DX: R10.9 Unspecified abdominal pain (principal); K29.70 Gastritis, unspecified, without bleeding; K20.90 Esophagitis, unspecified without bleeding | CPT/HCPCS: 43239 ==

== ENCOUNTER 2023-06-08 09:25 | Outpatient (AMB) | payer OTHER, MEDICAID, SELFPAY ==
[2023-06-08 09:36] VITALS: BP 102/80; PULSE 70; O2SAT 99; BMI 43.3
--- NOTE | 2023-06-08 09:36 | A.OFFPC_ITS ---
Vital Signs 06/08/23 09:36 Height 5 ft 6 in Weight 268 lb BMI 43.3 BP 102/80 Blood Pressure Location Lt brachial Position Sitting Pulse 70 Pulse Source Pulse Oximeter Pulse Oximetry (%) 99 Oxygen Delivery Method Room Air Intake Visit Reasons: Annual PE Intake Note: Pt is here today for her PE: last papsmear last year Is last menstrual period known: Yes Last menstrual period: 06/04/23 Allergies No Known Allergies Allergy (Verified 06/08/23 10:06) Medication List - Last Reconciled 06/08/23 by Jessica Babcock MD etonogestrel (Nexplanon) subdermal Tobacco use date assessed: 06/08/23 Dental Screening Dental Screen Date: 06/08/23 Did you have a dental visit in the last 12 months?: No Was dental information given to patient?: No HPI Annual PE HPI Details 22-year-old lady here today for her phys ical exam. She is up-to-date with her cervical cancer screening, last Pap smear done a year ago, currently on Nexplanon for control. She has asymptomatic gallstones in right kidney stone, has been advised to get elective cholecystectomy by GI. Also is currently being seen by GI for mixed IBS. [facility] Medical History (Updated 06/11/23 @ 10:22 by Jessica Babcock MD) Morbid obesity Right nephrolithiasis Cholelithiasis Vitamin D deficiency COVID-19 Surgical History No pertinent past surgical history Family History Family/Other Colon cancer Maternal Grandmother Diabetes Maternal Aunt Diabetes Mental health disorder Paternal Aunt Mental health disorder Mother Mental health disorder Paternal Grandmother Gallstones Father Alcoholism Social History Household Members: Family Housing: House Alcohol intake: never Tobacco use type: Smokeless Tobacco e-Cigarette/Vaping Use: Never Used service: No Current occupational status: employed Cognitive needs: No Hearing needs: No Vision needs: No Female Reproductive History Menstrual Date of last menstrual period: 06/04/23 control method: implanted Questionnaire PHQ-9 Over the last 2 weeks, how often have you been bothered by any of the following problems? 1. Little interest or pleasure in doing things: not at all 2. Feeling down, depressed, or hopeless: not at all 3. Trouble falling or staying asleep, or sleeping too much: not at all 4. Feeling tired or having little energy: not at all 5. Poor appetite or overeating: not at all 6. Feeling bad about yourself - or that you are a failure or have let yourself or your family down: not at all 7. Trouble concentrating on things, such as reading the newspaper or watching television: not at all 8. Moving or speaking so slowly that other people could have noticed. Or the opposite - being so fidgety or restless that you have been moving around a lot more than usual: not at all 9. Thoughts that you would be better off or of hurting yourself in some way: not at all Total score: 0 Depression Screening Interpretation: Negative Depression Screening Done: Yes 62410 - PHQ-9 Billing: Yes Source: Developed by Drs. Bharathi Church, Milly Perkins, Irvin Marrufo and colleagues, with an educational rica from [employer]. Thrive Questionnaire Date Thrive assessed: 06/08/23 I am a: Patient What is your living situation today?: I have a steady place to live Within the past 12 months, did the food you bought not last and you didn't have the money to get more?: Never true Within the past 12 months, did you worry whether your food would run out before you got money to buy more?: Never true Do you have trouble paying for medicines?: No Do you have trouble getting transportation to medical appointments?: No Do you have trouble paying your heating and electricity bill?: No Do you have trouble taking care of your child, family member or friend?: No Do you have trouble with day-to-day activities such as bathing, preparing meals, shopping, managing finances, etc.?: No Are you currently unemployed and looking for a job?: No Are you interested in more education?: Yes THRIVE Score: 0 AUDIT C Alcohol Use Questionnaire (AUDIT-C) 1. How often do you have a drink containing alcohol?: 2-4 times a month 2. How many drinks containing alcohol do you have on a typical day when you are drinking?: 3 or 4 3. How often do you have six or more drinks on one occasion?: Never Total Score: 3 SHANDRA-7 AMB Questionnaire SHANDRA-7 Date SHANDRA - 7 assessed: 06/08/23 Feeling nervous, anxious, or on edge: 1 = Several days Not being able to stop or control worryin = Several days Worrying too much about different things: 1 = Several days Trouble relaxin = Not at all Being so restless that it is hard to sit still: 0 = Not at all Becoming easily annoyed or irritable: 0 = Not at all Feeling afraid as if something awful might happen: 1 = Several days Total SHANDRA-7 score (0-4 normal; 5-9 mild; 10-14 moderate; 15-21 severe): 4 Source: Developed by Drs. Bharathi Church, Milly Perkins, Irvin Marrufo and colleagues, with an educational rica from [employer]. SHANDRA-7 Assessment Billing SHANDRA-7 Assessment Tool: SHANDRA-7 Assessment 22148 Review of Systems Const Denies fever(s), Denies night sweats, Denies poor appetite and Reports weight gain Eyes Reports no additional complaints and Denies change in vision ENT Denies dysphagia, Denies odynophagia, Denies throat swelling and Denies tongue swelling Card Reports chest pain Resp Reports no additional complaints GI Denies abdominal pain, Denies melena, Reports bloating, Denies hematochezia, Reports constipation (More dominant than diarrhea), Denies GI cramping, Denies dysphagia, Denies heartburn and Denies odynophagia Reports no additional complaints Musc Reports no additional complaints Skin/Breast Denies pruritus, Denies lesions, Denies rash and Denies jaundice Neuro Reports no additional complaints Psych Reports no additional complaints Endo Reports no additional complaints Danie/Lymph Reports no additional complaints Aller/Immun Denies throat swelling and Denies tongue swelling Physical exam (Primary Care) Vital Signs: Last Vital Signs Pulse 70 06/08/23 09:36 BP 102/80 06/08/23 09:36 Pulse Ox 99 06/08/23 09:36 Oxygen Delivery Method Room Air 06/08/23 09:36 BMI result Body Mass Index 43.3 Tobacco/Smoking Status: Tobacco use Status Tobacco use date assessed 06/08/23 06/08/23 09:49 Patient Tobacco Use Status 06/08/23 09:49 Tobacco use type Smokeless Tobacco 06/08/23 09:49 e-Cigarette/Vaping Use Never Used 06/08/23 09:38 PHQ-9: PHQ-9 Score PHQ-9: Total score 0 06/08/23 10:15 Depression Screening Interpretation: Negative Thrive Assessment: Date of Thrive Assessment Date Thrive assessed 06/08/23 06/08/23 09:45 Const General: comfortable and no acute distress Nutritional Appearance: obese Orientation/consciousness: patient oriented x3 HENMT Head: Yes atraumatic Ears: TM's normal bilaterally and EAC's normal General nose exam: Normal external nose present Face and sinus: Yes face symmetric Mouth: Normal oral and palatal mucosa present and moist mucous membranes Eyes General: appearance normal, both eyes and all related structures Neck Neck: Yes full ROM, Yes no lymphadenopathy and Yes supple Chest Breast/axilla palpation: normal palpation of the breasts Resp Effort & Inspection: normal respiratory effort and able to speak in complete sentences Auscultation: clear to auscultation bilaterally Cardio Rate: regular rate Rhythm: regular rhythm Heart sounds: S1 normal heart sound present and S2 normal heart sound present GI Inspection: Yes obesity Palpation (GI): Soft to palpation, nontender, no guarding, no hernias and no masses Other: Goes to [facility] for her routine pelvic exam and cervical cancer screening Back/Spine/Pelvis Back: No back tenderness Skin General skin exam: no rashes or lesions noted Neuro General: patient oriented x3, gait normal, tone normal, moves all extremities, Normal light touch and pain sensation, no focal motor deficits and CN's II-XI intact bilaterally Extrem General: Yes full ROM, Yes no joint enlargement, Yes no pedal edema, Yes no calf tenderness and Yes normal gait Psych Appearance: grossly normal Mental Status: mental status grossly normal Speech and movement: Normal speech and movement present Affect: normal affect Attitude: cooperative Thought process: Normal thought process present Assessment and Plan Assessment & Plan (1) Annual visit for general adult medical examination with abnormal findings: Code(s): Z00.01 - Encounter for general adult medical examination with abnormal findings Plan: Will check appropriate labs. Recommended dental visit every 6 months and regular eye exams, at least every 2 years. Take adequate calcium in diet and vitamin-D 3 at 2000 IU per cap once a day, in addition to weight-bearing exercises to help maintain good muscle tone and weight control. Instructed to do self-breast exam, and recommended to get yearly mammogram, starting at age 40. Goes to [facility] for her routine Pap and pelvic exam, has Nexplanon for control. Up-to-date with her yearly flu shot, has had COVID vaccines in the past but does not want to get the booster, up-to-date with Tdap and all her childhood vaccinations (2) Gallstones: Comment: Shruthi did not help her symptoms if we think this is the heart of the problem she may need to consider cholecystectomy. Code(s): K80.20 - Calculus of gallbladder without cholecystitis without obstruction Plan: Has been advised to do elective cholecystectomy (3) Irritable bowel syndrome with both constipation and diarrhea: Code(s): K58.2 - Mixed irritable bowel syndrome Plan: Followed by GI clinic (4) Screening examination for STI: Code(s): Z11.3 - Encounter for screening for infections with a predominantly sexual mode of transmission Plan: Hepatitis B and C profile ordered as well as HIV testing (5) Morbid obesity: Code(s): E66.01 - Morbid (severe) obesity due to excess calories Plan: Discussed need to increase activity and wt reduction. Recommended focusing on improving your health instead of dieting. : Eat M editerranean diet, limit foods high in fat, sugar, and calories, eat slowly, pay attention to portion sizes, plan your meals ahead of time, start regular physical activity 150 minutes of moderate intensity exercise or 90 minutes/week of vigorous exercise. Orders: Orders Lipid Panel 06/08/23 E66.9 - Obesity, unspecified, K58.2 - Mixed irritable bowel syndrome, K80.20 - Calculus of gallbladder without cholecystitis without obstruction, K82.8 - Other specified diseases of gallbladder, Z00.01 - Encounter for general adult medical examination with abnormal findings, Z13.1 - Encounter for screening for diabetes mellitus, Z13.220 - Encounter for screening for lipoid disorders Vitamin D 25-OH Total 06/08/23 E66.9 - Obesity, unspecified, K58.2 - Mixed irritable bowel syndrome, K80.20 - Calculus of gallbladder without cholecystitis without obstruction, K82.8 - Other specified diseases of gallbladder, Z00.01 - Encounter for general adult medical examination with abnormal findings, Z13.1 - Encounter for screening for diabetes mellitus, Z13.220 - Encounter for screening for lipoid disorders Hepatitis B Surface Antibody 06/08/23 Z11.3 - Encounter for screening for infections with a predominantly sexual mode of transmission HIV Ab/Ag 06/08/23 Z11.3 - Encounter for screening for infections with a predominantly sexual mode of transmission Basic Metabolic Panel Fasting 06/08/23 E66.9 - Obesity, unspecified, K58.2 - Mixed irritable bowel syndrome, K80.20 - Calculus of gallbladder without cholecystitis without obstruction, K82.8 - Other specified diseases of gallbladder, Z00.01 - Encounter for general adult medical examination with abnormal findings, Z13.1 - Encounter for screening for diabetes mellitus, Z13.220 - Encounter for screening for lipoid disorders Hepatitis C Antibody 06/08/23 Z11.3 - Encounter for screening for infections with a predominantly sexual mode of transmission Coding Level of Care Code Est Pt Prev Care 18-39y([id number]) Diagnoses Annual visit for general adult medical examination with abnormal findings Z00.01 Gallstones K80.20 Irritable bowel syndrome with both constipation and diarrhea K58.2 Screening examination for STI Z11.3 Morbid obesity E66.01 Additional Codes SHANDRA-7 Assessment Billing - SHANDRA-7 Assessment Tool: SHANDRA-7 Assessment 97259 ([id number])
== END 2023-06-08 10:18 | disposition home or self-care (01) ==
PROVIDERS: PCP Internal Medicine; Visit Provider Internal Medicine
DX: Z00.00 Encounter for general adult medical examination without abnormal findings (principal); E66.01 Morbid (severe) obesity due to excess calories; Z68.41 Body mass index [BMI] 40.0-44.9, adult; K80.20 Calculus of gallbladder without cholecystitis without obstruction; K58.2 Mixed irritable bowel syndrome; Z11.3 Encounter for screening for infections with a predominantly sexual mode of transmission
CPT/HCPCS: 99395

== ENCOUNTER 2023-06-08 10:20 | Outpatient (REF) | payer OTHER, MEDICAID, SELFPAY ==
[2023-06-08 14:12] LABS: Anion Gap 12 (12-20); Blood Urea Nitrogen 13 mg/dL (9-16); Calcium 9.4 mg/dL (8.4-10.2); Carbon Dioxide 24 mmol/L (22-29); Chloride 105 mmol/L (96-108); Cholesterol 140 mg/dL (<200); Estimated Glomerular Filt Rate > 60; Glucose Fasting 92 mg/dL (60-99); HDL Cholesterol 48 mg/dL (>40); LDL Cholesterol Calculated 78 mg/dL (<100); Potassium 4.1 mmol/L (3.3-5.1); Sodium 137 mmol/L (135-145); Triglycerides 74 mg/dL (<150)
[2023-06-08 14:20] LABS: Vitamin D 25-OH Total 17.6 ng/mL (>30)
[2023-06-09 03:12] LABS: HBS Num1 6.35 mIU/mL (0-7.99); HIV AB/AG Nonreactive (Nonreactive); HIV Num 1 0.06 S/CO (0.00-0.99); ~Hepatitis B Surface Antibody NONREACTIVE (Nonreactive); ~Hepatitis C Antibody Nonreactive (Nonreactive)
== END 2023-06-08 10:21 | disposition home or self-care (01) ==
LOC: HO.HMGCLDS 10:20
PROVIDERS: PCP Internal Medicine; Visit Provider Internal Medicine
DX: Z00.01 Encounter for general adult medical examination with abnormal findings (principal); Z13.220 Encounter for screening for lipoid disorders; Z13.1 Encounter for screening for diabetes mellitus; Z11.4 Encounter for screening for human immunodeficiency virus [HIV]; K80.20 Calculus of gallbladder without cholecystitis without obstruction; K58.2 Mixed irritable bowel syndrome; K82.8 Other specified diseases of gallbladder; E66.9 Obesity, unspecified
CPT/HCPCS: 36415; 80048; 80061; 82306; 86706; 86803; 87389

== ENCOUNTER 2024-04-02 03:09 | Emergency (ER) | payer OTHER, SELFPAY ==
--- NOTE | ~2024-04-02 | XR_ITS ---
EXAMINATION: XR KNEE, LEFT CLINICAL INFORMATION: Laceration COMPARISON: None available. TECHNIQUE: Four views of the left knee. FINDINGS: This soft tissue emphysematous changes are noted along the medial aspect of the knee. No joint effusion, fractures or subluxations identified. No embedded radiopaque foreign bodies visualized. XR/XR knee LT 4V IMPRESSION: *Soft tissue laceration along the medial aspect of the knee. No joint effusion. No fractures or subluxations. Electronically signed by: Marc Wilburn MD 04/02/2024 04:45 AM CHIDI MCKEON
[2024-04-02 03:18] VITALS: BP 136/81; PULSE 93; RESP 16; TEMP 36.2; O2SAT 99; BMI 40.6
--- NOTE | 2024-04-02 06:55 | ED_ITS ---
HPI - Extremity Injury (Lower) General Chief Complaint: Extremity Injury, Lower Stated Complaint: lac on leg Time Seen by Provider: 04/02/24 06:53 Source: patient and old records reviewed Mode of arrival: ambulatory Limitations: no limitations History of Present Illness ED Provider: SHERI BA Narrative: 23yo female with PMH IBS last Tdap 2021 here with c/o catching medical aspect of the L knee on metal part of cough that is part of a sectional. No other injuries, can bend knee. 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[employer]) Injury: Left: knee Type of Injury: other Place: home Severity: mild Relieving factors: immobilization and rest Exacerbating factors: palpation Context: direct blow Associated symptoms: other (lac) Other symptoms: none Treatments prior to arrival: bandage Related Data Home Medications ?Medication ?Instructions ?Recorded ?Confirmed etonogestrel 68 mg subdermal subdermal 10/15/22 06/08/23 implant (Nexplanon) Previous Rx's ?Medication ?Instructions ?Recorded cholecalciferol (vitamin D3) 1,250 1,250 mcg PO QWEEK 3 months #13 06/11/23 mcg (50,000 unit) capsule caps Allergies Allergy/AdvReac Type Severity Reaction Status Date / Time No Known Allergies Allergy Verified 04/02/24 03:23 Review of Systems Review of Systems: Constitutional : No Fever, No Chills, Cardiovascular : No Chest Pain, No SOB Respiratory : No Dyspnea Gastrointestinal : No abdominal pain Musculoskeletal : No Joint Swelling Skin : No rash, positive skin laceration Neuro : No Weakness, No Numbness All other systems reviewed and are negative PMFSH Past Medical History Attestation statement: The following information was validated with the patient. Source: old records reviewed Medical History Morbid obesity Right nephrolithiasis Cholelithiasis Vitamin D deficiency COVID-19 Surgical History No pertinent past surgical history Family History Family History Family/Other Colon cancer Maternal Grandmother Diabetes Maternal Aunt Diabetes Mental health disorder Paternal Aunt Mental health disorder Mother Mental health disorder Paternal Grandmother Gallstones Father Alcoholism Social History Social History Household Members: Family Housing: House Alcohol intake: never Tobacco use type: Smokeless Tobacco e-Cigarette/Vaping Use: Never Used Advance Directives: No Advance Directives Information Provided: Yes Do you have a plan to hurt others: No Plan service: No Current occupational status: employed Cognitive needs: No Hearing needs: No Vision needs: No Physical Exam Vital Signs: Vital Signs: Last Vital Signs Temp 0 F L 04/02/24 08:32 Pulse 75 04/02/24 08:32 Resp 16 04/02/24 08:32 BP 139/72 04/02/24 08:32 Pulse Ox 98 04/02/24 08:32 O2 Del Method Room Air 04/02/24 08:32 BMI result Body Mass Index 40.6 Appearance: Alert. Oriented X3. No acute distress. Eyes: Pupils equal, round and reactive to light. ENT: Pharynx normal. Neck: Normal inspection. Neck supple. CVS: Pulses normal. Respiratory: No respiratory distress. Abdomen: Soft and non-tender. Skin: Skin warm and dry. Normal skin color. Normal skin turgor. Extremities: No lower extremity edema. L knee medial aspect flap 4cm down to subq but no invasion of muscle or joint capsule, distal NV intact and she has normal ROM of the knee Neuro: Oriented X 3. No motor deficit. No sensory deficit. Medications Administered Discontinued Medications Generic Name Dose Route Start Last Admin Trade Name Freq PRN Reason Stop Dose Admin Lidocaine HCl 5 ml 04/02/24 06:54 04/02/24 07:24 Lidocaine Hcl 1 % Mpf 5 Ml Vial SUBCUT 04/02/24 06:55 5 ml ONCE ONE Administration Medical Decision Making Medical Decision Making MDM Narrative: 23yo female with PMH IBS last Tdap 2021 here with c/o L leg laceration at this time NV intact it is very superficial no involvement of muscle or capsule there is some tissue loss will stitch, xray negative, Tdap UTD Differential Diagnosis Differential Diagnoses: The differential diagnosis associated with the presentation includes soft tissue injury, laceration Independent Interpretation I performed an independent interpretation of an: Plain X-Ray (normal) Radiology Impression Discussion of test interpretation with radiology: I have reviewed the radiologist's reading. Independent Historian Clinical information obtained from an independent historian. History obtained from or confirmed by: Spouse Procedures Laceration Laceration 1: Site: lower extremity Side (If applicable): left Size (cm): 4 Description: flap Depth: simple, single layer Local Anesthetic: lidocaine 1% Amount of anesthesia used (mL): 5 Pre-repair: wound explored, irrigated extensively and deep structures intact Skin layer closed with: nylon Size (cm): 4-0 Number of sutures: 7 Technique: simple, interrupted Discharge Plan Discharge Clinical Impression: Laceration of knee Qualifiers: Encounter type: initial encounter Laterality: left Qualified Code(s): S81.012A - Laceration without foreign body, left knee, initial encounter Patient Disposition: Home, Self-Care Instructions: Laceration (ED) Additional Instructions: do not get wet if possible - keep clean and dry return for redness, swelling, fevers, yellow drainage limit range of motion and movement of knee take tylenol or motrin as needed for pain Prescriptions: No Action cholecalciferol (vitamin D3) 1,250 mcg (50,000 unit) capsule 1,250 mcg PO QWEEK 90 Days Qty: 13 0RF Nexplanon 68 mg implant subdermal Stand Alone Forms: Work/School Release Interventions: ED Discharge Assessment Last Done: 04/02/24 08:32 Discharge Date/Time: 04/02/24 08:32 Print Language: Nigerien
[2024-04-02] MEDS: Lidocaine HCl 1 % MPF 5 ML VIAL SUBCUT (07:24)
[2024-04-02 08:07] VITALS: BP 139/72; PULSE 75; RESP 16; O2SAT 98
--- NOTE | 2024-04-02 08:08 | PC.NURSE ---
7 sutures placed by BALAJI Bazan. Awaiting d/c
[2024-04-02 08:32] VITALS: BP 139/72; PULSE 75; RESP 16; TEMP -17.7; TEMP 0; O2SAT 98
== END 2024-04-02 08:32 | disposition home or self-care (01) ==
PROVIDERS: Emergency Provider Emergency Medicine; PCP Internal Medicine
DX: S81.012A Laceration without foreign body, left knee, initial encounter (principal); W22.03XA Walked into furniture, initial encounter; Y93.89 Activity, other specified; Y92.039 Unspecified place in apartment as the place of occurrence of the external cause; Y99.9 Unspecified external cause status
CPT/HCPCS: 12002; 73564; 99283; 99284; J2003

== ENCOUNTER 2024-06-13 10:47 | Outpatient (REF) | payer OTHER, SELFPAY ==
[2024-06-13 14:41] LABS: Alanine Aminotransferase 19 U/L (0-31); Albumin Level 4.4 g/dL (3.5-5.0); Alkaline Phosphatase 82 U/L (39-117); Anion Gap 11 (12-20); Aspartate Amino Transferase 20 U/L (5-31); Bilirubin Total 0.4 mg/dL (0.0-1.0); Blood Urea Nitrogen 12 mg/dL (9-16); Calcium 9.3 mg/dL (8.4-10.2); Carbon Dioxide 24 mmol/L (22-29); Chloride 110 mmol/L (96-108); Cholesterol 131 mg/dL (<200); Estimated Glomerular Filt Rate > 60; Glucose Fasting 86 mg/dL (60-99); HDL Cholesterol 44 mg/dL (>40); LDL Cholesterol Calculated 72 mg/dL (<100); Potassium 3.7 mmol/L (3.3-5.1); Sodium 141 mmol/L (135-145); Total Protein 7.9 g/dL (6.5-8.0); Triglycerides 77 mg/dL (<150); Vitamin D 25-OH Total 9.3 ng/mL (>30)
== END 2024-06-13 10:48 | disposition home or self-care (01) ==
LOC: HO.HMGCLDS 10:47
PROVIDERS: PCP Internal Medicine; Visit Provider Internal Medicine
DX: Z00.01 Encounter for general adult medical examination with abnormal findings (principal); K80.20 Calculus of gallbladder without cholecystitis without obstruction; E55.9 Vitamin D deficiency, unspecified; N20.0 Calculus of kidney; R10.13 Epigastric pain; E66.01 Morbid (severe) obesity due to excess calories; Z68.34 Body mass index [BMI] 34.0-34.9, adult; K82.8 Other specified diseases of gallbladder; Z71.89 Other specified counseling
CPT/HCPCS: 36415; 80053; 80061; 82306; 96127

== ENCOUNTER 2024-06-13 10:47 | Outpatient (AMB) | payer OTHER, MEDICAID, SELFPAY ==
[2024-06-13 11:37] VITALS: BP 128/80; PULSE 63; RESP 16; TEMP 36.8; O2SAT 100; BMI 39.4
--- NOTE | 2024-06-13 11:37 | A.OFFPC_ITS ---
Vital Signs 06/13/24 11:37 Height 5 ft 6 in Weight 244 lb BMI 39.4 BP 128/80 Blood Pressure Location Rt brachial Position Sitting Respiration 16 Pulse 63 Pulse Source Pulse Oximeter Temp 98.3 F Temp Source Oral Pulse Oximetry (%) 100 Oxygen Delivery Method Room Air Intake Visit Reasons: Annual PE Intake Note: Pt is her today for her PE: Last papsmear 2023 [facility] [place] Is last menstrual period known: Yes Last menstrual period: 05/16/24 Allergies No Known Allergies Allergy (Verified 06/13/24 11:43) Medication List - Last Reconciled 06/13/24 by Jessica Babcock MD etonogestrel (Nexplanon) subdermal Tobacco use date assessed: 06/13/24 Dental Screening Dental Screen Date: 06/13/24 Did you have a dental visit in the last 12 months?: Yes Did you have a dental problem in the last 6 months where you did not have access to dental care?: Yes Was dental information given to patient?: Patient has dentist HPI Annual PE HPI Details 23-year-old lady here today for physical exam. She is up-to-date with her cervical cancer screening, done 2 years ago at [facility], and has Nexplanon inserted approximately 5 years ago. Up-to-date with all her childhood vaccination but does not want to get COVID boosters, and does not want to get her flu vaccine this year. Up-to-date with Tdap. Had a CT scan of abdomen pelvis last year which showed presence of asymptomatic right kidney stones and multiple cholelithiasis noted. And has been experiencing recurrent epigastric pain , usually triggered with certain food intake, accompanied usually with nausea but no vomiting.. Not on any medication to relieve above symptoms. [facility] Medical History (Updated 06/13/24 @ 22:55 by Jessica Babcock MD) Dyspepsia Epigastric abdominal pain Morbid obesity Right nephrolithiasis Cholelithiasis Vitamin D deficiency COVID-19 Surgical History No pertinent past surgical history Family History Family/Other Colon cancer Maternal Grandmother Diabetes Maternal Aunt Diabetes Mental health disorder Paternal Aunt Mental health disorder Mother Mental health disorder Paternal Grandmother Gallstones Father Alcoholism Social History Household Members: Family Housing: House Alcohol intake: never Tobacco use type: Smokeless Tobacco e-Cigarette/Vaping Use: Never Used service: No Current occupational status: employed Cognitive needs: No Hearing needs: No Vision needs: No Female Reproductive History Menstrual Date of last menstrual period: 05/16/24 Other: goes to [facility] in [place] Questionnaire PHQ-9 Over the last 2 weeks, how often have you been bothered by any of the following problems? 1. Little interest or pleasure in doing things: not at all 2. Feeling down, depressed, or hopeless: not at all 3. Trouble falling or staying asleep, or sleeping too much: not at all 4. Feeling tired or having little energy: not at all 5. Poor appetite or overeating: not at all 6. Feeling bad about yourself - or that you are a failure or have let yourself or your family down: not at all 7. Trouble concentrating on things, such as reading the newspaper or watching television: not at all 8. Moving or speaking so slowly that other people could have noticed. Or the opposite - being so fidgety or restless that you have been moving around a lot more than usual: not at all 9. Thoughts that you would be better off or of hurting yourself in some way: not at all Total score: 0 Depression Screening Interpretation: Negative Depression Screening Done: Yes 22604 - PHQ-9 Billing: Yes Source: Developed by Drs. Bharathi Church, Milly Perkins, Irvin Marrufo and colleagues, with an educational rica from [employer]. Thrive Questionnaire Date Thrive assessed: 06/12/24 I am a: Patient What is your living situation today?: I have a steady place to live Within the past 12 months, did the food you bought not last and you didn't have the money to get more?: Never true Within the past 12 months, did you worry whether your food would run out before you got money to buy more?: Never true Do you have trouble paying for medicines?: No Do you have trouble getting transportation to medical appointments?: No Do you have trouble paying your heating and electricity bill?: No Do you have trouble taking care of your child, family member or friend?: No Do you have trouble with day-to-day activities such as bathing, preparing meals, shopping, managing finances, etc.?: No Are you currently unemployed and looking for a job?: No Are you interested in more education?: Yes Please select the resources that you would like help with: None Currently or been in a relationship where the following occur: No concerns reported THRIVE Score: 0 AUDIT C Alcohol Use Questionnaire (AUDIT-C) 1. How often do you have a drink containing alcohol?: 2-3 times a week 2. How many drinks containing alcohol do you have on a typical day when you are drinking?: 1 or 2 3. How often do you have six or more drinks on one occasion?: Never Total Score: 3 SHANDRA-7 AMB Questionnaire SHANDRA-7 Date SHANDRA - 7 assessed: 06/13/24 Feeling nervous, anxious, or on edge: 1 = Several days Not being able to stop or control worryin = Not at all Worrying too much about different things: 1 = Several days Trouble relaxin = Not at all Being so restless that it is hard to sit still: 0 = Not at all Becoming easily annoyed or irritable: 0 = Not at all Feeling afraid as if something awful might happen: 1 = Several days Total SHANDRA-7 score (0-4 normal; 5-9 mild; 10-14 moderate; 15-21 severe): 3 Source: Developed by Drs. Bharathi Church, Milly Perkins, Irvin Marrufo and colleagues, with an educational rica from [employer]. SHANDRA-7 Assessment Billing SHANDRA-7 Assessment Tool: SHANDRA-7 Assessment 43887 Review of Systems Const Reports no additional complaints and Reports weight loss Eyes Reports no additional complaints ENT Reports no additional complaints Card Denies chest pain, Denies chest pain with activity, Denies rapid heart rate, Denies irregular heart rhythm, Denies leg edema and Denies lightheadedness Resp Reports no additional complaints GI Reports as per HPI, Denies melena and Denies hematochezia Reports no additional complaints Musc Reports no additional complaints Skin/Breast Denies pruritus, Denies lesions, Denies rash and Denies jaundice Neuro Reports no additional complaints Psych Reports no additional complaints Endo Reports no additional complaints Danie/Lymph Reports no additional complaints Aller/Immun Reports no additional complaints Physical exam (Primary Care) Vital Signs: Last Vital Signs Temp 98.3 F 06/13/24 11:37 Pulse 63 06/13/24 11:37 Resp 16 06/13/24 11:37 BP 128/80 06/13/24 11:37 Pulse Ox 100 06/13/24 11:37 Oxygen Delivery Method Room Air 06/13/24 11:37 BMI result Body Mass Index 39.4 Tobacco/Smoking Status: Tobacco use Status Tobacco use date assessed 06/13/24 06/13/24 11:43 Tobacco use type Smokeless Tobacco 06/13/24 11:43 e-Cigarette/Vaping Use Never Used 06/13/24 11:43 PHQ-9: PHQ-9 Score PHQ-9: Total score 0 06/13/24 11:43 Depression Screening Interpretation: Negative Thrive Assessment: Date of Thrive Assessment Date Thrive assessed 06/12/24 06/13/24 11:43 Currently or been in a relationship where the following occur: No concerns reported Advance Care Planning discussion: Completed/Scanned Date of discussion: 06/13/24 Who was present: Patient Forms completed: Health Care Proxy Time spent: 16-45 minutes Actual minutes spent: 2 Const General: comfortable and no acute distress Nutritional Appearance: obese morbidly obese Orientation/consciousness: patient oriented x3 HENMT Ears: TM's normal bilaterally and EAC's normal General nose exam: Normal external nose present Face and sinus: Yes face symmetric Mouth: Normal oral and palatal mucosa present and moist mucous membranes Eyes General: appearance normal, both eyes and all related structures Neck Neck: Yes full ROM, Yes no lymphadenopathy and Yes supple Chest Breast/axilla palpation: normal palpation of the breasts Resp Effort & Inspection: normal respiratory effort and able to speak in complete sentences Auscultation: clear to auscultation bilaterally Cardio Rate: regular rate Rhythm: regular rhythm Heart sounds: S1 normal heart sound present and S2 normal heart sound present GI Other: Slight pain over epigastric area, no mass rebound or guarding Inspection: Yes obesity Palpation (GI): Soft to palpation Auscultation: normal bowel sounds Other: Goes to [facility] for her routine pelvic exam and cervical cancer screening Back/Spine/Pelvis Back: No back tenderness Skin General skin exam: no rashes or lesions noted Neuro General: patient oriented x3, gait normal, tone normal, moves all extremities, Normal light touch and pain sensation, no focal motor deficits and CN's II-XI intact bilaterally Extrem General: Yes full ROM, Yes no joint enlargement, Yes no pedal edema, Yes no calf tenderness and Yes normal gait Psych Appearance: grossly normal Mental Status: mental status grossly normal Speech and movement: Normal speech and movement present Affect: normal affect Attitude: cooperative Thought process: Normal thought process present Coding Level of Care Code Est Pt Prev Care 18-39y(32982) Diagnoses Annual visit for general adult medical examination with abnormal findings Z00.01 Calculus of gallbladder without cholecystitis without obstruction K80.20 Cholelithiasis location: gallbladder Cholecystitis presence: without cholecystitis Biliary obstruction: without biliary obstruction Vitamin D deficiency E55.9 Right nephrolithiasis N20.0 Epigastric abdominal pain R10.13 Dyspepsia R10.13 Advanced directives, counseling/discussion Z71.89 Additional Codes PHQ-9 - 53411 - PHQ-9 Billing: Yes ([id number]) SHANDRA-7 Assessment Billing - SHANDRA-7 Assessment Tool: SHANDRA-7 Assessment 00835 ([id number]) Vital Signs *Quality* - Advance Care Planning discussion: Completed/Scanned ([id number]) Vital Signs *Quality* - Time spent: 16-45 minutes ([id number]) Assessment & Plan Assessment & Plan (1) Annual visit for general adult medical examination with abnormal findings: Code(s): Z00.01 - Encounter for general adult medical examination with abnormal findings Plan: Will check appropriate labs. Recommended dental visit every 6 months and regular eye exams, at least every 2 years. Take adequate calcium in diet and vitamin-D 3 at 2000 IU per cap once a day, in addition to weight-bearing exercises to help maintain good muscle tone and weight control. Instructed to do self-breast exam, and recommended to get yearly mammogram, starting at age 40. Goes to [facility] her routine Pap and pelvic exam. Has had COVID vaccinations in the past but does not want get any further boosters, reminded to get yearly flu vaccine, but does not want to get 1 today., up-to-date with Tdap (2) Cholelithiasis: Code(s): K80.20 - Calculus of gallbladder without cholecystitis without obstruction Category: Medical Qualifiers: Cholelithiasis location: gallbladder Cholecystitis presence: without cholecystitis Biliary obstruction: without biliary obstruction Qualified Code(s): K80.20 - Calculus of gallbladder without cholecystitis without obstruction Plan: Ordered a repeat abdominal ultrasound avoidance of eating high fat diet, (3) Vitamin D deficiency: Code(s): E55.9 - Vitamin D deficiency, unspecified Category: Medical Plan: Will check vitamin-D level (4) Right nephrolithiasis: Code(s): N20.0 - Calculus of kidney Category: Medical Plan: Currently asymptomatic (5) Epigastric abdominal pain: Code(s): R10.13 - Epigastric pain Category: Medical Plan: Abdominal ultrasound ordered, empirically started on famotidine 40 mg per tablet to take 1 tablet at night after supper or in a.m. before breakfast. Avoidance of triggers such as anything that is acidic, caffeine alcohol (6) Dyspepsia: Code(s): R10.13 - Epigastric pain Category: Medical Plan: Empirically started on famotidine 40 mg per tab take once a day (7) Advanced directives, counseling/discussion: Code(s): Z71.89 - Other specified counseling Plan: Initiated the conversation about Advanced Directives. Advanced Directives help patients prepare for current and future decisions about their medical treatment and place of care. Discussed with patient that it is a process where a patients current condition and prognosis are reviewed, their wishes for information regarding their illness are elicited, and likely medical dilemmas are presented and options discussed. Healthcare proxy form completed today. The form can be amended as needed, reviewed yearly and make changes as needed Orders: Orders US abdomen complete Today K80.20 - Calculus of gallbladder without cholecystitis without obstruction, R10.13 - Epigastric pain Vitamin D 25-OH Total Today E55.9 - Vitamin D deficiency, unspecified, E66.01 - Morbid (severe) obesity due to excess calories, K80.20 - Calculus of gallbladder without cholecystitis without obstruction, K82.8 - Other specified diseases of gallbladder, R10.13 - Epigastric pain Lipid Panel Today E55.9 - Vitamin D deficiency, unspecified, E66.01 - Morbid (severe) obesity due to excess calories, K80.20 - Calculus of gallbladder with out cholecystitis without obstruction, K82.8 - Other specified diseases of gallbladder, R10.13 - Epigastric pain Comprehensive [place]. Panel Fast Today E55.9 - Vitamin D deficiency, unspecified, E66.01 - Morbid (severe) obesity due to excess calories, K80.20 - Calculus of gallbladder without cholecystitis without obstruction, K82.8 - Other specified diseases of gallbladder, R10.13 - Epigastric pain Medications: New famotidine 40 mg PO BEDTIME 30 tabs 5RF
== END 2024-06-13 12:08 | disposition home or self-care (01) ==
PROVIDERS: PCP Internal Medicine; Visit Provider Internal Medicine
DX: Z00.01 Encounter for general adult medical examination with abnormal findings (principal); K80.20 Calculus of gallbladder without cholecystitis without obstruction; E55.9 Vitamin D deficiency, unspecified; N20.0 Calculus of kidney; R10.13 Epigastric pain; Z71.89 Other specified counseling

== ENCOUNTER 2024-07-11 08:17 | Outpatient (REF) | payer OTHER, SELFPAY ==
--- NOTE | ~2024-07-11 | US_ITS ---
CLINICAL HISTORY: K80.20 - Calculus of gallbladder without cholecystitis without obstruction US abdomen complete with duplex and color Doppler Comparison: None Findings: The visualized pancreas, aorta, and inferior vena cava are unremarkable. Liver normal size and echotexture. Right lobe 14.0 cm length. No focal hepatic masses. Common duct 4.0 mm diameter. Contracted gallbladder filled with gallstones. No gallbladder wall thickening. No pericholecystic fluid. No sonographic Ortiz sign. Main portal vein antegrade. Right kidney normal size, 11.0 cm in length. Normal cortical width and echotexture. No solid or cystic renal masses. Nonobstructing caliceal stone lower pole measuring 5 mm. No hydronephrosis. Left kidney normal, 12.7 cm in length. Normal cortical width and echotexture. No solid or cystic renal masses. Nonobstructing caliceal stone lower pole measuring 4 mm. No hydronephrosis. Spleen measures 11.8 cm. No splenic masses. No ascites. No lymphadenopathy. Impression: 1. Contracted gallbladder with gallstones. 2. Bilateral nephrolithiasis. This document has been electronically signed by: Jovan Carolina MD on 07/11/2024 11:14:06
== END 2024-07-11 08:18 | disposition home or self-care (01) ==
LOC: HO.US 08:17
PROVIDERS: PCP Internal Medicine; Visit Provider Internal Medicine
DX: K80.20 Calculus of gallbladder without cholecystitis without obstruction (principal); R10.13 Epigastric pain
CPT/HCPCS: 76700

== ENCOUNTER → 2024-07-11 08:20 | Outpatient (BNV) | payer OTHER, SELFPAY | PROVIDERS: PCP Internal Medicine; Visit Provider Radiology Diagnostic Radiology | DX: K80.20 Calculus of gallbladder without cholecystitis without obstruction (principal) | CPT/HCPCS: 76700 ==

== ENCOUNTER 2024-08-04 08:47 | Outpatient (AMB) | payer OTHER, SELFPAY ==
--- NOTE | 2024-08-04 08:53 | MHC.OFFVIS ---
Vital Signs 08/04/24 08:58 Height 5 ft 6 in Weight 236 lb 8 oz BMI 38.2 BP 148/77 H Blood Pressure Location Lt brachial Position Sitting Pulse 69 Intake Visit Reasons: Calculus of GB Intake Note: Patient is seen in office for evaluation of the gallbladder. 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 She has been experiencing this pain for approximately three years, mainly on the right side, and describes it as being related to gallstones. The pain often correlates with the consumption of certain foods, occurring immediately after eating, and is accompanied by nausea and morning vomiting. A previous HIDA scan in 2020 confirmed biliary dyskinesia, and she experienced similar pains during the test, suggesting it is related to her gallbladder dysfunction. Despite taking Pepcid, her symptoms persist without amelioration. She also has a history of kidney stones, although it is not associated with any surgical interventions or significant systemic issues. Given the chronic nature of her symptoms and the abnormal findings in her gallbladder function, surgical removal of the gallbladder is under consideration for symptom relief. [facility] Medical History Dyspepsia Epigastric abdominal pain Morbid obesity Right nephrolithiasis Cholelithiasis Vitamin D deficiency COVID-19 Surgical History No pertinent past surgical history Family History Maternal Grandmother Diabetes Maternal Aunt Diabetes Mental health disorder Paternal Aunt Mental health disorder Mother Mental health disorder Paternal Grandmother Gallstones Father Alcoholism Social History Household Members: Family Housing: House Alcohol intake: current Alcohol intake frequency: a few times a month Tobacco use type: Smokeless Tobacco e-Cigarette/Vaping Use: Never Used service: No Current occupational status: employed Cognitive needs: No Hearing needs: No Vision needs: No Review of Systems Const Details: - Gastrointestinal: Reports chronic right-sided abdominal pain, nausea, vomiting, and food-related exacerbation. - Genitourinary: Denies any surgical intervention for kidney stones. - Respiratory, Cardiovascular, Neurological, Endocrine, Musculoskeletal, Skin, Hematological: Denies any symptoms. All systems reviewed & are unremarkable except as noted in HPI and below Physical Exam Const General: cooperative and no acute distress Nutritional Appearance: well nourished Orientation/consciousness: patient oriented x3 Limitations: no limitations HEENT Head: Yes normocephalic and Yes atraumatic Ears: hearing grossly normal bilaterally Resp Effort & Inspection: normal respiratory effort, no audible wheezes, no cough and no respiratory distress Cardio Jugular venous distension: no JVD GI Inspection: Yes normal to inspection Palpation (GI): Soft to palpation, nontender, no guarding and not rigid Skin Other: Warm, dry, no rash Neuro General: patient oriented x3 Extrem General: Yes no clubbing, cyanosis or edema Assessment & Plan Assessment & Plan (1) Chronic cholecystitis due to cholelithiasis with choledocholithiasis: Code(s): K80.64 - Calculus of gallbladder and bile duct with chronic cholecystitis without obstruction Category: Medical Plan 4-year-old female patient with complaints of abdominal pain in the epigastrium and right upper quadrant found to have gallstones within the gallbladder and evidence of biliary dyskinesia (chronic cholecystitis) on HIDA scan. Given the persistence of her symptoms and the positive HIDA scan, laparoscopic cholecystectomy is suggested. After review of the procedure, risks, and alternatives, she consents to a laparoscopic or possible open cholecystectomy. We discussed postoperative restrictions including avoiding lifting greater than 10 lb for 2 weeks following the surgery as well as avoiding fatty/fried foods for one-month following the surgery. She expressed understanding and agrees with the plan. Coding Level of Care Code New Pt Level 4 (93737) Diagnoses Chronic cholecystitis due to cholelithiasis with choledocholithiasis K80.64
[2024-08-04 08:58] VITALS: BP 148/77; PULSE 69; BMI 38.2
== END 2024-08-04 09:12 | disposition home or self-care (01) ==
LOC: HO.HGS 08:48
PROVIDERS: PCP Internal Medicine; Referring Provider Internal Medicine; Visit Provider Surgery
DX: K80.64 Calculus of gallbladder and bile duct with chronic cholecystitis without obstruction (principal)
CPT/HCPCS: 99204

== ENCOUNTER → 2024-08-04 08:47 | Outpatient (BNVA) | payer OTHER, SELFPAY | PROVIDERS: PCP Internal Medicine; Referring Provider Internal Medicine; Visit Provider Surgery ==

== ENCOUNTER 2024-09-21 05:51 | Day surgery (SDC) | payer OTHER, SELFPAY ==
[2024-09-19 08:51] VITALS: BMI 38.1
[2024-09-21] VITALS (9 sets, daily range): BP systolic 116–139; BP diastolic 60–84; PULSE 77–111; RESP 14–16; TEMP 36.3–37.2; O2SAT 96–100; BMI 37.4
[2024-09-21 06:28] LABS: UPreg QC Valid YES; Urine Pregnancy NEGATIVE (NEGATIVE)
[2024-09-21] MEDS: Lactated Ringers 1,000 ML 100 ML IVCONT (06:45)
--- NOTE | 2024-09-21 07:13 | MHC.SHP ---
Pre-Procedural Eval Section A - 24 Hr Update-Section A only Date of Service: 09/21/24 The patient is an INPATIENT: No Changes since office visit: Yes Patient answered all questions; No Cold of Flu in the past 2 weeks, No New Medical Problems and No Changes in Medication The patient has been examined within 24 hours of the surgical procedure. The History & Physical has been completed within 30 days and I have reviewed it.: No Section B - Complete if H&P > 30 days Chief Complaint: Calculus of gallbladder and bile duct with chronic Details of Present Illness: Mild GERD symptoms reported today Relevant Family History (Specify if Yes): No Relevant Social History: Alcohol Use (weed) Present Medications: see Short Stay Collaborative assessment Medical History: No relevant PMH History of Previous Operations: No relevant previous surgery Allergies: Allergies Allergy/AdvReac Type Severity Reaction Status Date / Time No Known Allergies Allergy Verified 08/04/24 08:59 Review of Systems Sugical H&P ROS: Negative: Constitution, Cardiovascular, Respiratory, Neurological, Psychiatric, Allergic/Immunologic, Gastrointestinal, Genitourinary, Musculoskeletal and Integumentary Exam Surgical H&P Exam: Normal: HEENT, Normal: Heart, Normal: Lungs, Normal: Extremities, Normal: Abdomen, Normal: Skin and Normal: Neurological Plan Diagnosis/Plan: Unchanged I have reviewed the history and physical and performed a pertinent physical examination on my patient. No changes have occurred unless specified. Time Spent With Patient Time: Total time managing care of this patient today ____ minutes.
--- NOTE | 2024-09-21 07:25 | HO.ANESPROP2 ---
Documented by User: Tameka Dugan NP 09/19/24 14:59 HPI - Anesthesia Eval Consult details Narrative: 24yo F for Cholecystectomy Laparoscopic,possible open BMI 43 PMFSH Active Problems Active Problems: All Active Problems Chronic cholecystitis due to cholelithiasis with choledocholithiasis (Acute) Dyspepsia (Acute) Epigastric abdominal pain (Acute) Morbid obesity (Acute) Right nephrolithiasis (Acute) Cholelithiasis (Acute) Vitamin D deficiency (Acute) Biliary dyskinesia (Acute) Past Medical History Medical History Dyspepsia Epigastric abdominal pain Morbid obesity Right nephrolithiasis Cholelithiasis Vitamin D deficiency COVID-19 Family History Family History Maternal Grandmother Diabetes Maternal Aunt Diabetes Mental health disorder Paternal Aunt Mental health disorder Mother Mental health disorder Paternal Grandmother Gallstones Father Alcoholism Family history of problems with anesthesia: No Surgical History Surgical History (Updated 09/21/24 @ 06:17 by Chela Card RN) History of esophagogastroduodenoscopy (EGD) No pertinent past surgical history Social History Social History Household Members: Family Housing: House Are you a primary care transitions nurse to a significant other at home: No Do you presently have visiting nurse or other home services: No Alcohol intake: current Alcohol intake frequency: a few times a week Patient Tobacco Use Status: Former Tobacco user Tobacco use type: Cigar e-Cigarette/Vaping Use: Never Used Use of substances other than those prescribed or required for medical reasons: Yes Have you been hit, kicked, punched, or otherwise hurt by someone within the past year? If so, by whom?: No Are you DNR?: No Advance Directives: No Advance Directives Information Provided: Yes Patient : No FDLMP: 09/06/2024 : No Poor oral hygiene: No service: No Current occupational status: employed Cognitive needs: No Hearing needs: No Vision needs: No Meds Allergies Allergy/AdvReac Type Severity Reaction Status Date / Time No Known Allergies Allergy Verified 08/04/24 08:59 Home Medications ?Medication ?Instructions ?Recorded ?Confirmed ?Last Taken ?Type etonogestrel 68 mg subdermal subdermal 10/15/22 08/04/24 Unknown History implant (Nexplanon) Exam Height,Weight and Vital Signs: Height 5 ft 6 in Weight 107.048 kg Pertinent Lab Results Pertinent Lab Results: Laboratory Tests 11/04/22 06/13/24 12:19 12:12 WBC 12.0 H Hgb 12.4 Hct 38.7 Plt Count 323 Sodium 141 Potassium 3.7 Chloride 110 H Carbon Dioxide 24 BUN 12 Creatinine 0.69 Assessment and Plan Assessment Anesthesia Assessment: Chart Reviewed Final Anesthetic Review Family History of Problems with Anesthesia: No Documented by User: Meghann Manuel DO 09/21/24 07:56 HPI - Anesthesia Eval Consult details Narrative: 24yo F for Cholecystectomy Laparoscopic,possible open BMI 37 PMFSH Past Medical History Medical History Dyspepsia Epigastric abdominal pain Morbid obesity Right nephrolithiasis Cholelithiasis Vitamin D deficiency COVID-19 Family History Family History Maternal Grandmother Diabetes Maternal Aunt Diabetes Mental health disorder Paternal Aunt Mental health disorder Mother Mental health disorder Paternal Grandmother Gallstones Father Alcoholism Family history of problems with anesthesia: No Surgical History Surgical History (Updated 09/21/24 @ 06:17 by Chela Card RN) History of esophagogastroduodenoscopy (EGD) No pertinent past surgical history History of Problems with Anesthesia: No Social History Social History Household Members: Family Housing: House Are you a primary care transitions nurse to a significant other at home: No Do you presently have visiting nurse or other home services: No Alcohol intake: current Alcohol intake frequency: a few times a week Patient Tobacco Use Status: Former Tobacco user Tobacco use type: Cigar e-Cigarette/Vaping Use: Never Used Use of substances other than those prescribed or required for medical reasons: Yes Have you been hit, kicked, punched, or otherwise hurt by someone within the past year? If so, by whom?: No Are you DNR?: No Advance Directives: No Advance Directives Information Provided: Yes Patient : No FDLMP: 09/06/2024 : No Poor oral hygiene: No service: No Current occupational status: employed Cognitive needs: No Hearing needs: No Vision needs: No Meds Allergies Allergy/AdvReac Type Severity Reaction Status Date / Time No Known Allergies Allergy Verified 08/04/24 08:59 Home Medications ?Medication ?Instructions ?Recorded ?Confirmed ?Last Taken ?Type etonogestrel 68 mg subdermal subdermal 10/15/22 08/04/24 Unknown History implant (Nexplanon) Exam Exam Date and Time: 09/21/24 0725 Height,Weight and Vital Signs: Height 5 ft 6 in Weight 107.048 kg Vital Signs Temperature 98.3 F 09/21/24 06:31 Pulse Rate 83 09/21/24 06:31 Respiratory Rate 14 09/21/24 06:31 Blood Pressure 139/84 09/21/24 06:31 Pulse Oximetry 100 09/21/24 06:31 Oxygen Delivery Method Room Air 09/21/24 06:31 Temperature 98.3 F 09/21/24 06:31 Pulse Rate 83 09/21/24 06:31 Respiratory Rate 14 09/21/24 06:31 Blood Pressure 139/84 09/21/24 06:31 Pulse Oximetry 100 09/21/24 06:31 Oxygen Delivery Method Room Air 09/21/24 06:31 Airway Mallampati Class: II TM Dist: >3cm Neck ROM: Full Loose/Missing/Broken Teeth: No (patient denies any loose or broken teeth) Heart: S1S2 Lungs: CTAB Assessment and Plan Assessment Anesthesia Assessment: Anesthesia Plan Discussed and Chart Reviewed Final Anesthetic Review Family History of Problems with Anesthesia: No History of Problems with Anesthesia: No NPO: Yes ASA Class: II Final Preanesthetic Review: No Changes in Pt Med Stat, Meds/Allgs Chart Reviewed, Consent Obtained/Reviewed and Anes Risks/Benef Reviewed Patient Risk: Low Procedure Risk: Intermediate Anesthetic Plan Anesthetic Plan: GA and Agree w/ Assess. and Plan Disposition: Standard PACU
--- NOTE | 2024-09-21 07:38 | P.OP_ITS ---
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 Findings were consistent with chronic cholecystitis due to cholelithiasis. Operative findings: Marked adhesions to the undersurface of the gallbladder from the omentum consistent with chronic cholecystitis. Multiple large gallstones within the gallbladder Specimen: gallbladder Estimated blood loss: 5 mL Complications: None Procedure details: Patient was brought to the OR and placed in a supine position. After administering general anesthesia the patient's abdomen was prepped with ChloraPrep and draped in a sterile fashion. A surgical time-out was called the consent confirmed. Patient received preoperative antibiotics and Venodyne boots were in place. Local anesthesia consisting of 0.5% Sensorcaine without epinephrine was infiltrated in a periumbilical region. A 5 mm incision was made above the umbilicus in a transverse fashion. The Veress needle was then inserted while elevating abdominal cavity with towel clips. After positive drop test the abdomen was insufflated to a pressure of 15 mm of mercury. The Veress needle was then removed and a 5 mm trocar inserted. The camera was inserted in the abdomen explored. A 12 mm trocar was then placed in the epigastrium. Two 5 mm trocars placed in the right upper quadrant by the respiratory therapy assistant. The patient was placed in reverse Trendelenburg positioning and rotated to the left. The gallbladder was grasped with the fundus and retracted cephalad by the respiratory therapy assistant. Dense adhesions were then taken down using electrocautery in the Dolphin dissector to reveal the infundibulum. The infundibulum was then grasped and retracted away from the liver bed, also by the respiratory therapy assistant. The Dolphin dissected was then used by the surgeon to dissect the peritoneum off the infundibulum to reveal the junction with the cystic duct. Cystic artery was noted slightly medial and posterior to the cystic duct. After obtaining a critical view the cystic duct was doubly clipped and divided. The cystic artery was then doubly clipped and divided. The gallbladder was then dissected off the liver bed using electrocautery with an L hook. Hemostasis was assured all times using the electrocautery. When the gallbladder is completely dissected off the liver bed was placed in an Endo- Catch bag and brought out through the epigastric incision. The gallbladder was sent to pathology for further examination. The abdomen was then re-examined. The liver bed was irrigated and suctioned dry. No bleeding or bile leak could be identified. CO2 was then evacuated and all trocars removed. Fascia was closed at the epigastric incision using a [id number] 0 Polysorb suture. Skin was closed in all incisions using a subcuticular 4 0 Polysorb suture by both the surgeon and respiratory therapy assistant. Sterile dressings consisting of Steri-Strips, 2 x 2 gauze, and Tegaderm were then applied. The patient tolerated the procedure well. Sponge instrument and needle counts reported as correct. The patient was transferred to PACU in stable condition.
== END 2024-09-21 10:55 | disposition home or self-care (01) ==
PROVIDERS: Nurse Practitioner; PCP Internal Medicine; Visit Provider Surgery
PROC: 0FT44ZZ Resection of Gallbladder, Percutaneous Endoscopic Approach (ICD-10-PCS; CPT 47562; principal; 2024-09-21 07:30)
DX: K80.12 Calculus of gallbladder with acute and chronic cholecystitis without obstruction (principal); K82.8 Other specified diseases of gallbladder; R10.13 Epigastric pain; N20.0 Calculus of kidney; E55.9 Vitamin D deficiency, unspecified; Z79.899 Other long term (current) drug therapy; Z87.891 Personal history of nicotine dependence
CPT/HCPCS: 47562; 81025; 88304; J0131; J1100; J1171; J1885; J2003; J2250; J2405; J2704; J3010

== ENCOUNTER → 2024-09-21 05:51 | Outpatient (BNV) | payer OTHER, SELFPAY | PROVIDERS: PCP Internal Medicine; Visit Provider Surgery | DX: K80.10 Calculus of gallbladder with chronic cholecystitis without obstruction (principal) | CPT/HCPCS: 47562 ==

== ENCOUNTER 2024-10-03 09:20 | Outpatient (AMB) | payer OTHER, SELFPAY ==
--- NOTE | 2024-10-03 09:22 | A.OFFVIS_ITS ---
Vital Signs 10/03/24 09:28 Height 5 ft 6 in Weight 231 lb 8 oz BMI 37.4 BP 134/77 Blood Pressure Location Lt brachial Position Sitting Pulse 69 Intake Visit Reasons: S/P Lap Grecia, poss open Intake Note: Patient is seen in office for post op assessment post Laparoscopic cholecystectomy. Pt c/o: denies any concerns surgery: 09/21/24 Professional Nurse Required: No Accompanied by: Self / Same As Patient Allergies No Known Allergies Allergy (Verified 08/04/24 08:59) HPI HPI S/P Lap Grecia, poss open: Details: Patient reports she is doing well. Only concern is some swelling at the epigastric port site. Otherwise her pain is well controlled, did not need narcotics, used OTC NSAIDs as needed. She denies fever, chills. Denies drainage from incision sites. Bowel function appropriate, appetite appropriate. She denies any heavy lifting. Patient is off of work through October 19. [facility] Medical History Dyspepsia Epigastric abdominal pain Morbid obesity Right nephrolithiasis Cholelithiasis Vitamin D deficiency COVID-19 Surgical History History of laparoscopic cholecystectomy (09/21/24) History of esophagogastroduodenoscopy (EGD) Family History Maternal Grandmother Diabetes Maternal Aunt Diabetes Mental health disorder Paternal Aunt Mental health disorder Mother Mental health disorder Paternal Grandmother Gallstones Father Alcoholism Social History Household Members: Family Housing: House Are you a primary rn coronary care unit to a significant other at home: No Do you presently have visiting nurse or other home services: No Alcohol intake: current Alcohol intake frequency: a few times a week Patient Tobacco Use Status: Former Tobacco user Tobacco use type: Cigar e-Cigarette/Vaping Use: Never Used service: No Current occupational status: employed Cognitive needs: No Hearing needs: No Vision needs: No Review of Systems Const All systems reviewed & are unremarkable except as noted in HPI and below Physical Exam Vital Signs: Last Vital Signs Pulse 69 10/03/24 09:28 BP 134/77 10/03/24 09:28 BMI result Body Mass Index 37.4 Const General: healthy appearing, comfortable and no acute distress Orientation/consciousness: patient oriented x3 Resp Effort & Inspection: normal respiratory effort and able to speak in complete sentences GI Other: Incision sites are clean dry and intact, a few Steri-Strips remain in place. Very mild edema at the epigastric port site. No palpable fluid collection no surrounding erythema. Inspection: No distended Palpation (GI): Soft to palpation, not firm, Tenderness to palpation present (GI) (Mild tenderness at epigastric port site), no guarding and not rigid Neuro General: patient oriented x3 Assessment & Plan Assessment & Plan (1) S/P laparoscopic cholecystectomy: Code(s): Z90.49 - Acquired absence of other specified parts of digestive tract Category: Medical Plan 24-year-old female s/p laparoscopic cholecystectomy on 09/21/2024 presenting for routine follow-up. Patient is doing well, returning towards baseline. Pain is well controlled. On exam abdomen is soft and benign. Mild tenderness to the epigastric port site. Minimal edema noted at this port site. No palpable fluid collection with surrounding erythema. The incision sites appear to be clean and intact, healing well. Patient will follow-up in 2 weeks for 1 month postop visit prior to returning to work. We will continue with lifting restrictions. No heavy lifting greater than 15 lb. No submerging of incision sites. Patient can follow up sooner for any concerns prior to her next appointment Surgical specimen pathology as follows, acute and chronic cholecystitis with cholelithiasis. Coding Level of Care Code Global (56673) Diagnoses S/P laparoscopic cholecystectomy Z90.49
[2024-10-03 09:28] VITALS: BP 134/77; PULSE 69; BMI 37.4
== END 2024-10-03 09:42 | disposition home or self-care (01) ==
LOC: HO.HGS 09:20
PROVIDERS: PCP Internal Medicine
DX: Z90.49 Acquired absence of other specified parts of digestive tract (principal)
CPT/HCPCS: 99024

== ENCOUNTER → 2024-10-03 09:20 | Outpatient (BNVA) | payer OTHER, SELFPAY | PROVIDERS: PCP Internal Medicine ==

== ENCOUNTER 2024-10-17 09:58 | Outpatient (AMB) | payer OTHER, SELFPAY ==
--- NOTE | 2024-10-17 10:00 | MHC.OFFVIS ---
Vital Signs 10/17/24 10:07 Height 5 ft 6 in Weight 233 lb BMI 37.6 BP 149/83 H Blood Pressure Location Lt brachial Position Sitting Pulse 78 Intake Visit Reasons: 2wk S/P Lap Grecia, poss open Intake Note: Patient is seen in office for 4 weeks follow up visit, post laparsocopic cholecystectomy. Pt c/o: denies any concerns Accompanied by: Family/Other Allergies No Known Allergies Allergy (Verified 10/17/24 10:06) HPI HPI 2wk S/P Lap Grecia, poss open: Details: patient doing well, has no concerns at this time. Reports appetite and bowel function is at baseline. She reports some occasional pain with ambulation at the epigastric incision site. She plans to return to work later this week. She feels ready to return to work. Denies any heavy lifting since her last appointment [facility] Medical History Dyspepsia Epigastric abdominal pain Morbid obesity Right nephrolithiasis Cholelithiasis Vitamin D deficiency COVID-19 Surgical History History of laparoscopic cholecystectomy (09/21/24) History of esophagogastroduodenoscopy (EGD) Family History Maternal Grandmother Diabetes Maternal Aunt Diabetes Mental health disorder Paternal Aunt Mental health disorder Mother Mental health disorder Paternal Grandmother Gallstones Father Alcoholism Social History Household Members: Family Housing: House Are you a primary career law clerk to a significant other at home: No Do you presently have visiting nurse or other home services: No Alcohol intake: current Alcohol intake frequency: a few times a week Patient Tobacco Use Status: Never used Tobacco e-Cigarette/Vaping Use: Never Used service: No Current occupational status: employed Cognitive needs: No Hearing needs: No Vision needs: No Review of Systems Const All systems reviewed & are unremarkable except as noted in HPI and below Physical Exam Vital Signs: Last Vital Signs Pulse 78 10/17/24 10:07 BP 149/83 H 10/17/24 10:07 BMI result Body Mass Index 37.6 Const General: comfortable and no acute distress Orientation/consciousness: patient oriented x3 Resp Effort & Inspection: normal respiratory effort and able to speak in complete sentences GI Other: incision sites healing well, no surrounding erythema, no palpable fluid collection, nontender Inspection: Yes normal to inspection and No distended Palpation (GI): Soft to palpation, not firm, nontender, no guarding and not rigid Neuro General: patient oriented x3 Assessment & Plan Assessment & Plan (1) S/P laparoscopic cholecystectomy: Code(s): Z90.49 - Acquired absence of other specified parts of digestive tract Category: Surgical Plan 24 year old female presents to the office for 1 month follow up s/p laparascopic cholcystectomy. Patient is overall doing well, progressing towards baseline. She has no complaints at this time, she does experience some mild pain at the incision site but states it is improving. On exam her abdomen is soft and benign, incision sites are healing well, no concern for infection at this time. Patient planning to return to work later this week, she is okay to return to work. We will lift acitivity restrictions, recommended she slowly return to her baseline level of activity. At this point she is no longer requiring follow up, she can follow up as needed for any concerns in the future. Coding Level of Care Code Global (52057) Diagnoses S/P laparoscopic cholecystectomy Z90.49
[2024-10-17 10:07] VITALS: BP 149/83; PULSE 78; BMI 37.6
== END 2024-10-17 10:14 | disposition home or self-care (01) ==
LOC: HO.HGS 09:59
PROVIDERS: PCP Internal Medicine
DX: Z90.49 Acquired absence of other specified parts of digestive tract (principal)
CPT/HCPCS: 99024

== ENCOUNTER 2025-01-30 08:31 | Outpatient (AMB) | payer OTHER, SELFPAY ==
--- NOTE | 2025-01-30 08:40 | AM.OFFVISNUR ---
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 Eligible 01/30/25 Private Assessment & Plan Assessment & Plan Orders: Orders Hepatitis B Adult Immunization Today Z23 - Encounter for immunization Coding
== END 2025-01-30 08:42 | disposition home or self-care (01) ==
LOC: HO.HMCC 08:32
PROVIDERS: PCP Internal Medicine; Visit Provider Internal Medicine
DX: Z23 Encounter for immunization (principal)

== ENCOUNTER → 2025-01-30 08:31 | Outpatient (BNVA) | payer OTHER, SELFPAY | PROVIDERS: PCP Internal Medicine; Visit Provider Internal Medicine | DX: Z23 Encounter for immunization (principal) | CPT/HCPCS: 90471; 90746 ==

== ENCOUNTER 2025-02-27 08:26 | Outpatient (AMB) | payer OTHER, SELFPAY ==
--- NOTE | 2025-02-27 08:44 | AM.OFFVISNUR ---
Intake Visit Reasons: Hep B dose Allergies No Known Allergies Allergy (Verified 10/17/24 10:06) Nursing Note Pt came in for 2nd dosing of Hepatitis B vaccine to left deltoid. Pt tolerated well. Ppt to have 3rd dosing in 6 months. 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 Eligible 02/27/25 Private Assessment & Plan Assessment & Plan Orders: Orders Hepatitis B Adult Immunization Today Z92.29 - Personal history of other drug therapy Coding
== END 2025-02-27 09:41 | disposition home or self-care (01) ==
LOC: HO.HMCC 08:27
PROVIDERS: PCP Internal Medicine; Visit Provider Internal Medicine
DX: Z92.29 Personal history of other drug therapy (principal)

== ENCOUNTER → 2025-02-27 08:26 | Outpatient (BNVA) | payer OTHER, SELFPAY | PROVIDERS: PCP Internal Medicine; Visit Provider Internal Medicine | DX: Z23 Encounter for immunization (principal); Z92.29 Personal history of other drug therapy | CPT/HCPCS: 90471; 90746 ==